=== PATIENT | female | born 1950 | race Caucasian/White ===

== ENCOUNTER 2016-12-14 17:44 | Inpatient (IN) | payer MEDICARE ==
[2016-12-14] VITALS (8 sets, daily range): BP systolic 122–156; BP diastolic 66–91
[~2016-12-14] VITALS: Ht 165.1 cm; Wt 99.6 kg
--- NOTE | ~2016-12-14 | CON ---
[place], [place] REPORT OF CONSULTATION NAME: JOANNE HASSAN UNIT #: [id number] ROOM: 524 DOCTOR: JHONNY BERRIOS MD BIRTHDATE: [birth year] DOS: 12/14/2016 REQUESTING PHYSICIAN: Jade Valero DO REASON FOR CONSULTATION: Recurrent SVT. ASSESSMENT: 1. 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 2. Similar complaints and presentation in October of this year and June of last year. 3. Tse-TE-kcplcomoy myocardial infarction was induced with fast heart rate. 4. Decreased functional capacity with ongoing chest pain, heaviness, tightness along with jaw pain with minimal activity despite normal stress test in June of last year. 5. Significant early family history of cardiomyopathy with her sister having heart transplant at age 57. 6. Diabetes. 7. Hypertension. 8. Hyperlipidemia. 9. Obesity with high probability of obstructive sleep apnea. 10. Ongoing wheezing with previous history of mold exposure. PLAN: 1. Cycle cardiac enzymes. 2. Check thyroid function test. 3. Decrease lisinopril in order to have leverage on blood pressure, to increase Toprol to 50 mg b.i.d. in a.m. 4. Keep the patient n.p.o. for possible transfer to [facility], if the patient agrees to transfer her care to us from [facility]. 5. Highly consider EP consultation for early ablation. 6. Sleep study. 7. Beta-yusuf will be titrated as much as vital signs allow. 8. Exercise, weight loss after above test has been done. 9. Please hold albuterol inhaler. 10. Consider Pulmonary consultation. 11. Early follow up with Dr. Land as an outpatient within 1-2 weeks. HISTORY AND PHYSICAL: The patient is a pleasant 66-year-old female well known to our group with Dr. Land. Apparently, the patient was seen and evaluated multiple times including myself for recurrent admission for SVT and heart rate almost of more than 190. The patient had 2 presentations where she was ruled in for myocardial infarction with significant and typical complain of jaw pain. The patient had similar episode while resting yesterday, this triggered also the same complaint of left jaw pain, so far though she has been negative for cardiac enzymes. She has been reporting over the past few months, worsening chest pain, heaviness, tightness with any minimal activity. The patient reported that she is not going shopping anymore because of that. Any over exertion will trigger left jaw pain. Never had any serious complaint at rest. The patient sleeps on [place], [place] REPORT OF CONSULTATION NAME: JOANNE HASSAN UNIT #: [id number] ROOM: 524 DOCTOR: JHONNY BERRIOS MD BIRTHDATE: [birth year] 1 pillow with no reported PND, orthopnea or pedal edema. In between episodes, the patient does feel occasional racing heartbeats. No fever, no chills, no night sweats, maintains good appetite, no weight loss. Current functional capacity appears to be [place] Heart Association class 2-3. PAST MEDICAL HISTORY: As detailed in my assessment. SOCIAL HISTORY: The patient denies ever any tobacco, alcohol or illicit drug abuse. FAMILY HISTORY: The patient's sister had cardiac transplant at age 57, two of her sisters had history of cardiomyopathy. CURRENT MEDICATIONS: On presentation, lisinopril, Toprol, aspirin, albuterol, DuoNeb, Protonix, Restoril, Zofran and [place] along with Tylenol. Currently, the patient is on antibiotic Rocephin and doxycycline along with Solu-Medrol. ALLERGIES: THE PATIENT IS ALLERGIC TO SULFA AND LEVAQUIN. REVIEW OF SYSTEMS: CONSTITUTIONAL: Currently, the patient denies any headache, diplopia or blurry vision. No fever, no chills, no night sweats. No abdominal pain, no bright blood per rectum, no tarry stools. The patient admits to joint pain and muscular pain. No anxiety, no depression. No polyuria, no polydipsia. No skin rash. Review of the other systems have been negative. PHYSICAL EXAMINATION: VITAL SIGNS: The patient is alert, oriented x 3, quite pleasant. Blood pressure 128/59, heart rate 86, respiratory rate of 20, temperature 97.7. HEENT: Extraocular muscles intact. Pupils equal, round and reactive to light. Conjunctivae: No pallor. Throat: No petechiae. NECK: Good upstroke. Unable to appreciate any bruit, no lymphadenopathy, no thyromegaly. HEART: S1, S2 with holosystolic murmur left upper sternal border, loud P2, physiologic split of 2nd heart sound. No rub. No retrosternal heave. CHEST AND BACK: No deformities. LUNGS: Significant decreased air movement, has generalized wheezing, no kt rales. ABDOMEN: Obese, soft, nontender, present bowel sounds, no masses, no bruits. LOWER EXTREMITIES: Mild edema bilateral with faint distal pulses. NEUROLOGIC: Grossly nonfocal. SKIN: No significant rash. LABORATORY DATA: White count initially 7.4, hemoglobin 14.5, platelets 222,000. Potassium 3.7, creatinine 1.36 initially, currently 0.9, hemoglobin A1c 7.2, elevated AST and ALT, negative CK-MB and troponin. Normal thyroid function test. [place], [place] REPORT OF CONSULTATION NAME: JOANNE HASSAN UNIT #: [id number] ROOM: 524 DOCTOR: JHONNY BERRIOS MD BIRTHDATE: [birth year] JHONNY BERRIOS MD CM:CONSTR:REPORT OF CONSULTATION 1113 12/16/16 0744 interface
--- NOTE | ~2016-12-14 | PR ---
[place], [place] PROGRESS NOTE NAME: JOANNE HASSAN [facility] #: [id number] UNIT #: [id number] ROOM: 524 DOCTOR: JAXSON FRIEND,RAUDELMEEK BIRTHDATE: [birth year] DOS: 12/16/2016 REASON FOR VISIT: Tachycardia. CLINICAL HISTORY: The patient was admitted for tachycardia. She has history of SVT, hypertension, diabetes. Currently, she is on IV Cardizem and beta blockers. She remained in sinus rhythm. Denies any chest pain or palpitations. No dizziness, no edema, no orthopnea, no PND. No fever or chills. RHYTHM STRIPS: The patient in sinus rhythm. PHYSICAL EXAMINATION: VITAL SIGNS: Blood pressure 112/58, pulse 90, respiratory rate 16. GENERAL: Alert, comfortable, in no acute distress. HEENT: Pupils round, equal. No jaundice. Tongue was moist, and pharynx was clear. NECK: Supple. No distended neck veins. No carotid bruit. CHEST: Nontender. LUNGS: Clear to auscultation bilaterally. ABDOMEN: Bowel sounds normal. HEART: Regular rhythm. No S3, no palpable thrill. EXTREMITIES: Showed no edema. Distal pulses palpable. SKIN: Warm and dry. No cyanosis, no clubbing. REVIEW OF DIAGNOSTIC TESTS: Her labs reviewed. Pertinent labs include hemoglobin 11.6, platelets 180,000. Creatinine 1.0, magnesium 1.7. IMPRESSION: 1. Paroxysmal supraventricular tachycardia with heart rates as high as 200 beats per minute. 2. Chest pain, myocardial infarction ruled out. 3. Diabetes type 2. 4. Hypertension. 5. Dyslipidemia. 6. Non-morbid obesity with body mass index 36.5. 7. Possible chronic obstructive pulmonary disease. 8. Family history of cardiomyopathy. 9. Decreased functional capacity. RECOMMENDATIONS: 1. We will wean off IV Cardizem. 2. We will increase her metoprolol to [address] Taveras recommended cardiac catheterization and then EP evaluation for her recurrent SVT. 4. She also will see Pulmonary for pulmonary evaluation as well as possible sleep study. 5. If the heart rate and blood pressure are stable, she will be transferred to [facility] today for cardiac catheterization, and then she will follow up with hotel maintenance technician either inpatient or as an outpatient based on the cardiac catheterization findings. [place], [place] PROGRESS NOTE NAME: JOANNE HASSAN UNIT #: [id number] ROOM: 524 DOCTOR: JAXSON FRIEND,CAITLIN BIRTHDATE: [birth year] 6. Risks and benefits of the cardiac catheterization were discussed with the patient and her family member who is at bedside, and all questions were answered. 7. Indication for a cardiac catheterization 19 with Appropriate Use Criteria of 7. 8. She would like to follow up with Dr. Land for her cardiac care in the future. 9. Further recommendations based on her cardiac catheterization findings and her symptoms. 10. Risk factor modification was discussed. 11. Continue to monitor heart rate and blood pressures. CAITLIN PURI MD CM:KRISTINA [id number] CAITLIN PURI MD 12/17/16 0336 interface
[~2016-12-14 17:44] MED LIST: ABILIFY5 MG PO; AMBIEN10 M1 PO; AMOXICILLIN500 MG PO; ASPIR-LOW81 MG PO; ASPIRIN ADULT L81 M2 PO; ATENOLOL25 MG PO; AZITHROMYCIN250 MG PO; B-COMPLEX1 CAP PO; B12,B-12,B 12500 MC1 PO; BACTRIM DS 8001 TA1 PO; CEPHALEXIN500 M1 PO; CIPRO500 MG PO; COLACE100 MG PO; CYMBALTA30 MG PO; CYMBALTA60 MG PO; LISINOPRIL10 MG PO; LISINOPRIL20 MG PO; LOPRESSOR50 MG PO; METFORMIN500 MG PO; METOPROLOL TART50 M1 PO; METOPROLOL50 MG PO; MOBIC15 MG PO; NAPROXEN250 MG PO; NEURONTIN300 MG PO; NUCYNTA75 MG PO; ONGLYZA5 MG PO; PRAVACHOL40 MG PO; PREDNISONE10 MG PO; TOPROL XL25 MG PO; VICODIN 5/500 505 MG PO; VITAMIN D2000 IU PO; VITAMIN D400 IU PO
[2016-12-14 18:27] LABS: BASO % 0.3 % (0.0-1.0); EOS # 0.2 10*3/uL (0.0-0.4); EOS % 3.2 % (1.0-4.0); HEMATOCRIT 45.1 % (37.0-47.0); HEMOGLOBIN 14.5 g/dl (12.0-16.0); LYMPH # 1.8 10*3/uL (1.3-4.4); LYMPH % 24.1 % (27.0-41.0); MEAN CORPUSCULAR HGB 30.2 pg (27.0-31.0); MEAN CORPUSCULAR HGB CONC 32.2 g/dl (33.0-37.0); MEAN PLATELET VOLUME 10.5 fl (9.6-12.3); MONO # 0.8 10*3/uL (0.1-1.0); MONO % 10.3 % (3.0-9.0); NEUT # 4.6 10*3/uL (2.3-7.9); NEUT % 61.7 % (47.0-73.0); PLATELET COUNT AUTOMATED 222 10*3/uL (130-400); RED CELL DISTRI WIDTH 13.1 % (0-14.5); WHITE BLOOD COUNT 7.4 10*3/uL (4.8-10.8)
[2016-12-14 18:39] LABS: PROTHROMBIN TIME 10.7 SECONDS (9.0-12.4)
[2016-12-14 18:43] LABS: ALBUMIN 4.1 gm/dl (3.1-4.5); ALKALINE PHOSPHATASE 55 U/L (45-117); BILIRUBIN, TOTAL 0.6 mg/dl (0.2-1.0); BUN 10 mg/dl (7-24); CARBON DIOXIDE 23 mmol/L (21-32); CHLORIDE 102 mmol/L (98-107); EST GLOM FILT AFRICAN AMERICAN 47 ml/min; GLUCOSE 195 mg/dL (65-99); MAGNESIUM 1.7 mg/dL (1.5-2.1); SGOT/AST 70 IU/L (3-35); SGPT/ALT 79 U/L (12-78); SODIUM 141 mmol/L (136-145); TOTAL PROTEIN 7.4 gm/dL (6.4-8.2)
[2016-12-14 18:45] LABS: TROPONIN I < 0.015 ng/ml (<0.045)
[2016-12-14] MEDS ORDERED: DILTIAZEM HCL120 M1 PO (19:05)
[2016-12-14] MEDS ORDERED: NEURONTIN300 MG PO (22:29)
[2016-12-14] MEDS ORDERED: TOPROL XL25 MG PO (22:30)
[2016-12-14] MEDS ORDERED: ULTRAM50 MG PO (22:31)
[2016-12-15] VITALS (8 sets, daily range): BP systolic 114–154; BP diastolic 54–84
[2016-12-15 00:36] LABS: CPK 78 U/L (26-192); TROPONIN I 0.019 ng/ml (<0.045)
[2016-12-15 00:37] LABS: CKMB < 0.5 ng/ml (0.5-3.6)
[2016-12-15 06:19] LABS: BASO % 0.5 % (0.0-1.0); EOS # 0.2 10*3/uL (0.0-0.4); EOS % 5.2 % (1.0-4.0); HEMOGLOBIN 12.6 g/dl (12.0-16.0); LYMPH # 1.4 10*3/uL (1.3-4.4); LYMPH % 33.3 % (27.0-41.0); MEAN CELL VOLUME 93.3 fl (81.0-99.0); MEAN CORPUSCULAR HGB 31.4 pg (27.0-31.0); MEAN CORPUSCULAR HGB CONC 33.7 g/dl (33.0-37.0); MEAN PLATELET VOLUME 10.7 fl (9.6-12.3); MONO # 0.6 10*3/uL (0.1-1.0); MONO % 13.6 % (3.0-9.0); NEUT % 46.9 % (47.0-73.0); PLATELET COUNT AUTOMATED 194 10*3/uL (130-400); RED BLOOD COUNT 4.01 10*6/uL (4.10-5.10); WHITE BLOOD COUNT 4.3 10*3/uL (4.8-10.8)
[2016-12-15 06:25] LABS: HEMATOCRIT 37.4 % (37.0-47.0)
[2016-12-15 06:31] LABS: CKMB 0.6 ng/ml (0.5-3.6); TROPONIN I 0.018 ng/ml (<0.045)
[2016-12-15 06:49] LABS: HEMOGLOBIN A1c 7.2 % (4.8-5.6)
[2016-12-15 06:52] LABS: ALBUMIN 3.4 gm/dl (3.1-4.5); ALKALINE PHOSPHATASE 46 U/L (45-117); BILIRUBIN, TOTAL 0.4 mg/dl (0.2-1.0); BUN 9 mg/dl (7-24); CARBON DIOXIDE 27 mmol/L (21-32); CHLORIDE 106 mmol/L (98-107); CHOLESTEROL 185 mg/dL (<200); EST GLOM FILT AFRICAN AMERICAN > 60 ml/min; FREE T4 1.01 ng/dl (0.76-1.46); GLUCOSE 137 mg/dL (65-99); HDL CHOLESTEROL 44 mg/dl (40-60); LDL CHOLESTEROL 97 mg/dL (9-159); MAGNESIUM 1.7 mg/dL (1.5-2.1); PHOSPHOROUS 2.9 mg/dL (2.5-4.9); POTASSIUM 3.7 mmol/L (3.5-5.1); PROTHROMBIN TIME 10.6 SECONDS (9.0-12.4); SGOT/AST 56 IU/L (3-35); SGPT/ALT 64 U/L (12-78); SODIUM 142 mmol/L (136-145); TOTAL PROTEIN 6.3 gm/dL (6.4-8.2); TRIGLYCERIDES 221 mg/dl (<150); VLDL CHOLESTEROL 44 mg/dL (6-40)
[2016-12-15 08:32] LABS: FOLIC ACID 17.51 ng/mL (>5.38); VITAMIN D, 25-HYDROXY 35.8 ng/mL (30-100)
[2016-12-15] MEDS ORDERED: PRESERVISION A1 EACH PO (09:09)
[2016-12-15 12:01] LABS: CPK 55 U/L (26-192)
[2016-12-15 12:02] LABS: CKMB < 0.5 ng/ml (0.5-3.6); TROPONIN I < 0.015 ng/ml (<0.045)
[2016-12-16] VITALS (9 sets, daily range): BP systolic 107–156; BP diastolic 51–88
[2016-12-16 06:04] LABS: BASO % 0.2 % (0.0-1.0); HEMATOCRIT 35.8 % (37.0-47.0); HEMOGLOBIN 11.6 g/dl (12.0-16.0); IG # 0.1 10*3/uL (0.0-0.1); LYMPH # 0.8 10*3/uL (1.3-4.4); LYMPH % 12.2 % (27.0-41.0); MEAN CELL VOLUME 92.5 fl (81.0-99.0); MEAN CORPUSCULAR HGB CONC 32.4 g/dl (33.0-37.0); MEAN PLATELET VOLUME 10.4 fl (9.6-12.3); MONO # 0.1 10*3/uL (0.1-1.0); MONO % 1.9 % (3.0-9.0); NEUT # 5.4 10*3/uL (2.3-7.9); NEUT % 84.8 % (47.0-73.0); PLATELET COUNT AUTOMATED 180 10*3/uL (130-400); RED BLOOD COUNT 3.87 10*6/uL (4.10-5.10); RED CELL DISTRI WIDTH 12.7 % (0-14.5); WHITE BLOOD COUNT 6.4 10*3/uL (4.8-10.8)
[2016-12-16 06:36] LABS: BUN 13 mg/dl (7-24); CARBON DIOXIDE 24 mmol/L (21-32); CHLORIDE 103 mmol/L (98-107); EST GLOM FILT AFRICAN AMERICAN > 60 ml/min; GLUCOSE 321 mg/dL (65-99); SODIUM 138 mmol/L (136-145)
[2016-12-16 06:37] LABS: POTASSIUM 4.7 mmol/L (3.5-5.1)
[2016-12-16] MEDS ORDERED: PREDNISONE50 MG PO (14:08)
[2016-12-16] MEDS ORDERED: TOPROL XL50 M1 PO (14:08)
[2016-12-16] MEDS ORDERED: DOXYCYCLINE100 MG PO (14:08)
[2016-12-16] MEDS ORDERED: LISINOPRIL10 M1 PO (14:08)
[2016-12-17] VITALS: BP 140/82
== END 2016-12-17 05:55 | disposition short-term general hospital (02) | DRG 682 ==
LOC: ED 17:44 → 5E 18:55 → EDHOLD 18:55 → 5E 19:36
PROVIDERS: Family Medicine; Hospitalist; Nurse Practitioner Family
DX: N17.0 Acute kidney failure with tubular necrosis (principal); J96.01 Acute respiratory failure with hypoxia; I47.1 Supraventricular tachycardia; I25.10 Atherosclerotic heart disease of native coronary artery without angina pectoris; J20.9 Acute bronchitis, unspecified; E11.9 Type 2 diabetes mellitus without complications; E78.5 Hyperlipidemia, unspecified; E66.9 Obesity, unspecified; J44.9 Chronic obstructive pulmonary disease, unspecified; I10 Essential (primary) hypertension; F41.1 Generalized anxiety disorder; F32.9 Major depressive disorder, single episode, unspecified; Z90.49 Acquired absence of other specified parts of digestive tract; Z90.710 Acquired absence of both cervix and uterus; Z80.1 Family history of malignant neoplasm of trachea, bronchus and lung; Z88.1 Allergy status to other antibiotic agents; Z88.2 Allergy status to sulfonamides; Z79.82 Long term (current) use of aspirin; Z79.84 Long term (current) use of oral hypoglycemic drugs; Z79.899 Other long term (current) drug therapy; Z82.49 Family history of ischemic heart disease and other diseases of the circulatory system; Z68.34 Body mass index [BMI] 34.0-34.9, adult

== ENCOUNTER → 2017-02-07 | Outpatient (CLI) | payer MEDICARE ==
[~2017-02-07] MED LIST changes: +DILTIAZEM HCL120 M1 PO; +DOXYCYCLINE100 MG PO; +LISINOPRIL10 M1 PO; +PREDNISONE50 MG PO; +PRESERVISION A1 EACH PO; +TOPROL XL50 M1 PO; +ULTRAM50 MG PO
== END | disposition home or self-care (01) ==
LOC: CARD 09:42
DX: I47.1 Supraventricular tachycardia (principal)

== ENCOUNTER → 2017-03-13 | Outpatient (CLI) | payer MEDICARE | END | disposition home or self-care (01) | LOC: CARD 10:37 | DX: I47.1 Supraventricular tachycardia (principal); R06.02 Shortness of breath ==

== ENCOUNTER → 2017-06-16 | Outpatient (CLI) | payer MEDICARE ==
--- NOTE | ~2017-06-16 | HM ---
[place], [place] HOLTER MONITOR REPORT NAME: JOANNE HASSAN UNIT #: [id number] ROOM: DOCTOR: ANDRÉS MENDOZA MD BIRTHDATE: [birth year] DOS: 06/18/2017 A 24-HOUR HOLTER MONITOR. REFERRING PHYSICIAN: Dr. Land INDICATION: SVT. The patient underwent standard protocol 24-hour Holter monitoring. 1. Baseline rhythm was sinus tachycardia with average heart rate of 100 beats per minute with a minimum heart rate of 75 beats per minute, maximum heart rate of 158 beats per minute. 2. Supraventricular activity: The patient had a total of 9 supraventricular beats with the majority of these being isolated PACs with 3 beats and a triplet of PAT. No other atrial arrhythmias were noted. 3. Ventricular activity: The patient had a total of 105 isolated PVCs out of 143,000 beats.. 4. No significant blocks, pauses or bradycardia. 5. Diary was reviewed, which showed 1 entry which stated shortness of breath with walking upstairs at 3:57 p.m. No arrhythmias to correlate with this were noted. SUMMARY OF FINDINGS: Unremarkable 24-hour Holter monitoring ANDRÉS MENDOZA MD CM:HOLTER:HOLTER MONITOR REPORT [id number] ANDRÉS MENDOZA MD
== END | disposition home or self-care (01) ==
LOC: CARD 06-02 09:30
DX: I47.1 Supraventricular tachycardia (principal)

== ENCOUNTER → 2017-07-02 | Outpatient (CLI) | payer MEDICARE ==
--- NOTE | ~2017-07-02 | HM ---
[place], [place] HOLTER MONITOR REPORT NAME: [id number] UNIT #: [id number] ROOM: DOCTOR: NIMESH KELLY MD BIRTHDATE: [birth year] DOS: A 24-HOUR HOLTER MONITOR The study was recorded on July 02, analyzed on July 03, interpreted and dictated on 07/03/2017. INDICATIONS: Possible SVT and tachycardia. PROCEDURE: The patient was monitored for 24 hours utilizing a Holter device. FINDINGS: Basic rhythm is normal sinus with an average heart rate of 89. Heart rate in sinus rhythm varied from 71 to 143 beats per minute. Rare premature ventricular contractions were recorded. No ventricular tachycardia was seen. Rare premature atrial contractions were recorded. There was no SVT seen. The patient's diary did indicate several episodes of chest pain and back pain as well as right chest pain. In each instants she was in sinus rhythm with heart rates between 79 and 90. No arrhythmias correlated with her symptoms, IMPRESSION: Normal 24-hour Holter monitor. NIMESH KELLY MD CM:HOLTER:HOLTER MONITOR REPORT [id number] NIMESH KELLY MD
== END | disposition home or self-care (01) ==
LOC: CARD 03:08
DX: I47.1 Supraventricular tachycardia (principal)

== ENCOUNTER 2017-09-26 19:35 | Inpatient (IN) | payer MEDICARE ==
[~2017-09-26] VITALS: Ht 165.1 cm; Wt 93.1 kg
--- NOTE | ~2017-09-26 | CON ---
[place], [place] REPORT OF CONSULTATION [id number] UNIT #: [id number] ROOM: 410 DOCTOR: NIMESH KELLY MD BIRTHDATE: [birth year] DOS: 09/27/2017 CHIEF COMPLAINT: Tachycardia. HISTORY OF PRESENT ILLNESS: The patient is a 67-year-old woman who does have a history of supraventricular tachycardia and essential hypertension. She presented to the hospital initially in June 2016 with chest pain and a narrow complex tachycardia at a rate of about 190. This broke with adenosine. She was treated with beta blockers, but returned to the hospital with more chest pain in November 2016. Once again, she was in a narrow complex tachycardia. She was transferred to [facility] where Dr. Coles did an electrophysiologic study with induction of AV adeel reentrant tachycardia. She did undergo ablation. This occurred 01/13/2017. Since then, her heart rate has not been as fast, but she has felt fatigued. We have adjusted her medications, but she continues to have significant fatigue. On 09/26/2017, she was alert and oriented at 5:00 p.m., but later she seemed confused. Family went to her home and found her unresponsive, sitting in a chair. Sugar was 261. She was given Narcan in the Emergency Room and became completely awake after that. However, a drug screen did not show any evidence for narcotics. She was admitted to the hospital for further assessment. Since she has been here, her CBC has been normal. Sodium is 143, potassium 4.2, sugar 219, BUN 9 and creatinine 1.05. Lactic acid level was elevated at 3.6, but fell to 2.2 and normalized after that. TSH was normal at 0.89. Troponins were normal. Since she has been in the hospital, she states that she has felt better, but she still gets breathless with minimal exertion. According to her daughter, this is a chronic problem. In addition, when she is ambulatory, her heart rate goes up dramatically. We were therefore asked to assist in her assessment. PAST MEDICAL HISTORY: Includes 1. Essential hypertension. 2. Type 2 diabetes mellitus. 3. Status post hysterectomy, tonsillectomy, appendectomy and back surgery. 4. The patient reports catheterization in the distant past, prior to the onset of her tachycardia. The patient states that the study was done at the [facility] in [place] and that everything was normal. She has not had any further catheterization since then. 5. Hospitalization on 09/23/2013 with narrow complex tachycardia at rate of 190. The patient's symptoms resolved with intravenous adenosine. 6. Multiple episodes of palpitations, lightheadedness and fatigue occurring several times a week without provocation. 7. Hospitalization on 06/01/2016 with regular narrow complex tachycardia, rate 190. 8. Mild elevation of troponin associated with tachycardia. 9. Hospitalization on 01/18/2017 with narrow complex tachycardia. The patient transferred to [facility] where Dr. Stephan Coles did an electrophysiologic study and ablation on 01/13/2017. REVIEW OF SYSTEMS: The patient denies diplopia or loss of vision. She had a syncopal episode prior to admission. She denies focal weakness. She denies [place], [place] REPORT OF CONSULTATION NAME: JOANNE HASSAN UNIT #: [id number] ROOM: 410 DOCTOR: NIMESH KELLY MD BIRTHDATE: [birth year] nausea or vomiting. She denies fevers, chills, sweats or recent weight change. She denies orthopnea or PND. She denies hemoptysis or hematemesis. She denies cough, fevers or chills. She does admit to easy fatigue, dyspnea with exertion and exertional tachycardia. She denies change in bowel or bladder habits and denies any blood in her stools or urine. She denies any skin rash. She denies any peripheral edema. She denies heat or cold intolerance. The remainder of the review of systems is negative except as noted above. MEDICATIONS PRIOR TO ADMISSION: Aspirin 81 mg per day, Cymbalta 60 mg b.i.d., gabapentin 300 mg tablets 3 tablets b.i.d., lisinopril 10 mg daily, metformin 500 mg 2 tablets b.i.d., pravastatin 40 mg at bedtime, Onglyza 5 mg daily, tramadol 50 mg p.r.n. (rarely taking), vitamin D 1 tablet daily and vitamin D 2000 units daily. ALLERGIES: The patient lists allergies to SULFA DRUGS and LEVOFLOXACIN. FAMILY HISTORY: Multiple family members have had a history of cardiomyopathy including three sisters and her mother. One sister had a heart transplant. The patient is unaware of the actual diagnosis, aside from the fact that it is a cardiomyopathy. SOCIAL HISTORY: The patient does not smoke or consume significant amounts of alcohol. She does live with smokers, but has never herself smoked. PHYSICAL EXAMINATION: GENERAL: The patient is a well-nourished white female who is awake, alert and oriented. VITAL SIGNS: Pulse is 90 and regular, blood pressure is 142/66. She is afebrile. She weighs 93.1 kg and has a body mass index of 34.2. HEENT: Normocephalic and atraumatic. Extraocular muscles are intact. Sclerae are clear. Pupils equal, round and react to light. The oral mucosa is moist. Tongue is midline. NECK: Supple. She has no jugular distention. Carotids are full. She has no bruit. She has no neck or supraclavicular masses. No thyromegaly. LUNGS: Respirations are unlabored. Her chest is clear to auscultation and percussion. She has no presacral edema or chest wall tenderness. HEART: Has a regular rhythm. She has a soft S4 gallop, but no S3 or murmur. The PMI is not displaced. There is no precordial heave, lift or thrill. ABDOMEN: Soft and normally active without masses, organomegaly or bruits. EXTREMITIES: Showed no edema. Peripheral pulses are palpable bilaterally. LABORATORY DATA: I reviewed her electrocardiogram. It showed sinus rhythm at a rate of [address] changes. CBC shows hemoglobin of 11.6 and a white count of 6100, platelet count is 161,000. TSH is normal. Toxicology shows no drugs of abuse. IMPRESSION: 1. Sinus tachycardia, etiology not yet determined. This may represent an inappropriate sinus tachycardia. [place], [place] REPORT OF CONSULTATION NAME: JOANNE HASSAN UNIT #: [id number] ROOM: 410 DOCTOR: NIMESH KELLY MD BIRTHDATE: [birth year] 2. Syncope on admission, etiology not clear. The patient did have an elevated lactate level on admission indicating poor tissue perfusion and probable prolonged hypotension. 3. Essential hypertension. 4. Type 2 diabetes, on oral medications. 5. 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 PLAN: We will reintroduce metoprolol to her regimen. I thought that it had caused fatigue, but she did not feel any better when we stopped the drug. It probably will be better at controlling her rates than any other agent we have. We will obtain an echocardiogram to ensure that her LV function has not deteriorated since she had her ablation. Further recommendations depend upon her response to therapy and her echocardiographic findings. I thank the hospitalist physicians for asking our advice regarding her care. NIMESH KELLY MD CM:CONSTR:REPORT OF CONSULTATION 1528 09/29/17 1553 interface
--- NOTE | ~2017-09-26 | PR ---
[place], [place] PROGRESS NOTE NAME: [id number] UNIT #: [id number] ROOM: 410 DOCTOR: NIMESH KELLY MD BIRTHDATE: [birth year] DOS: 09/28/2017 SUBJECTIVE: The patient was seen at her bedside today, 09/28/2017, for followup of SVT and tachycardia. She is a 67-year-old woman who has a history of AV adeel reentrant tachycardia and essential hypertension. She did undergo ablation at the [facility] by Dr. Coles on 01/13/2017. Since then her heart has not been as fast, but she has still felt fatigued. We have adjusted her medicines, but she continues to have symptoms. On 09/26/2017, she was alert and oriented at 5:00 p.m., but later was confused. When the family went to check on her, they found her unresponsive, sitting in her chair. Her sugar was 261. She was given Narcan with subsequent improvement in her sensorium, but a drug screen did not show any evidence for narcotics. Initially in the hospital, her pulse was 90 to 120. I placed her on metoprolol again and her heart rate now is in the 80s. She states that her only complaint today is that she has a headache, which she believes is from wide swings in her sugar. I had had her on metoprolol in the past, but stopped it because of concerns that it was causing fatigue. It seems to work; however, better to prevent her tachycardia than diltiazem. She did not feel any better when we stopped metoprolol in any case. PHYSICAL EXAMINATION: GENERAL: She is well-nourished white female who is awake, alert and oriented. VITAL SIGNS: Pulse is 80 and regular, blood pressure is 150/79. She is afebrile. She weighs 93.1 kilograms with a body mass index of 34.2. HEENT: Normocephalic and atraumatic. Extraocular muscles are intact. Sclerae are clear. NECK: Supple. She has no jugular distention. Carotids are full without bruits. LUNGS: Respirations are unlabored. Her chest is clear to auscultation and percussion. She had no presacral edema. HEART: Had a regular rhythm. She had a fourth heart sound, but no third heart sound or murmur. The PMI was not displaced. ABDOMEN: Benign. EXTREMITIES: Showed no edema. IMPRESSION: 1. Sinus tachycardia, possibly inappropriate sinus tachycardia. She seems to be doing better with metoprolol therapy. 2. Syncope prior to admission, etiology not yet apparent. She did have an elevated lactate level on admission, indicating poor tissue perfusion. 3. Essential hypertension. 4. Type 2 diabetes mellitus, on oral medications. 5. 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 PLAN: We will continue to treat her with metoprolol for rate control. She will have an echocardiogram in the next 24 hours to make sure that her LV function [place], [place] PROGRESS NOTE NAME: [facility]ASS[facility] [id number] UNIT #: [id number] ROOM: 410 DOCTOR: NIMESH KELLY MD BIRTHDATE: [birth year] has not deteriorated since her ablation. Further recommendations will depend upon her response to therapy and echocardiographic findings. I thank the hospitalist physicians for asking our advice regarding her care. NIMESH KELLY MD CM:KRISTINA [id number] NIMESH KELLY MD 09/28/172216 interface
[2017-09-26 19:35] VITALS: BP 116/70
[2017-09-26 20:09] LABS: BILIRUBIN NEGATIVE (NEGATIVE); BLOOD NEGATIVE (NEGATIVE); CLARITY SL CLOUDY (CLEAR); COLOR YELLOW (YELLOW); GLUCOSE 2+ (NEGATIVE); KETONE TRACE (NEGATIVE); LEUKO ESTERASE NEGATIVE (NEGATIVE); NITRITE POSITIVE (NEGATIVE); PH 5.5 (5.0-9.0); UROBILINOGEN 0.2 E.U./dl (0.2-1.0)
[2017-09-26 20:15] LABS: RBC 0-2 rbc/hpf (0-2)
[2017-09-26 20:16] LABS: BACTERIA 4+
[2017-09-26 20:17] LABS: URINE AMPHETAMINES < 1000 (1000ng/ml); URINE BARBITURATES < 200 (200ng/ml); URINE BENZODIAZEPINES < 200 (200ng/ml); URINE CANNABINOIDS (THC) < 50 (50ng/ml); URINE COCAINE < 300 (300ng/ml); URINE METHADONE < 300 (300ng/ml); URINE OPIATES < 300 (300ng/ml)
[2017-09-26 20:18] LABS: URINE PHENCYCLIDINE < 25 (25ng/ml)
[2017-09-26 20:20] VITALS: BP 110/70
[2017-09-26 20:32] LABS: ACT PARTIAL THROMBO TIME 26.6 SECONDS (20.8-31.5)
[2017-09-26 20:43] LABS: BASO % 0.4 % (0.0-1.0); EOS # 0.2 10*3/uL (0.0-0.4); HEMATOCRIT 36.7 % (37.0-47.0); HEMOGLOBIN 12.3 g/dl (12.0-16.0); LYMPH # 1.5 10*3/uL (1.3-4.4); LYMPH % 19.9 % (27.0-41.0); MEAN CELL VOLUME 91.1 fl (81.0-99.0); MEAN CORPUSCULAR HGB 30.5 pg (27.0-31.0); MEAN CORPUSCULAR HGB CONC 33.5 g/dl (33.0-37.0); MEAN PLATELET VOLUME 11.6 fl (9.6-12.3); MONO # 0.5 10*3/uL (0.1-1.0); MONO % 6.9 % (3.0-9.0); NEUT # 5.2 10*3/uL (2.3-7.9); NEUT % 70.4 % (47.0-73.0); PLATELET COUNT AUTOMATED 161 10*3/uL (130-400); RED BLOOD COUNT 4.03 10*6/uL (4.10-5.10); RED CELL DISTRI WIDTH 12.7 % (0-14.5); WHITE BLOOD COUNT 7.4 10*3/uL (4.8-10.8)
[2017-09-26 21:00] VITALS: BP 110/68
[2017-09-26 21:02] LABS: ALBUMIN 3.2 gm/dl (3.1-4.5); ALKALINE PHOSPHATASE 89 U/L (45-117); BUN 12 mg/dl (7-24); CHLORIDE 102 mmol/L (98-107); CREATININE 1.23 mg/dL (0.55-1.02); LIPASE 630 U/L (73-393); POTASSIUM 4.4 mmol/L (3.5-5.1); SGOT/AST 76 IU/L (3-35); SGPT/ALT 77 U/L (12-78); SODIUM 138 mmol/L (136-145); TOTAL PROTEIN 6.5 gm/dL (6.4-8.2)
[2017-09-26 21:09] LABS: ETHYL ALCOHOL < 3.0 mg/dl (<3); TROPONIN I < 0.015 ng/ml (<0.045)
[2017-09-26 21:56] VITALS: BP 106/70
[2017-09-26 22:40] VITALS: BP 126/55
[2017-09-27 08:00] VITALS: BP 116/70
[2017-09-27 08:05] LABS: BASO % 0.3 % (0.0-1.0); EOS # 0.2 10*3/uL (0.0-0.4); EOS % 3.5 % (1.0-4.0); HEMATOCRIT 35.6 % (37.0-47.0); HEMOGLOBIN 11.6 g/dl (12.0-16.0); LYMPH # 1.7 10*3/uL (1.3-4.4); LYMPH % 27.2 % (27.0-41.0); MEAN CORPUSCULAR HGB CONC 32.6 g/dl (33.0-37.0); MEAN PLATELET VOLUME 11.8 fl (9.6-12.3); MONO # 0.5 10*3/uL (0.1-1.0); MONO % 8.2 % (3.0-9.0); NEUT # 3.7 10*3/uL (2.3-7.9); NEUT % 60.5 % (47.0-73.0); PLATELET COUNT AUTOMATED 161 10*3/uL (130-400); RED BLOOD COUNT 3.87 10*6/uL (4.10-5.10); RED CELL DISTRI WIDTH 13.1 % (0-14.5); WHITE BLOOD COUNT 6.1 10*3/uL (4.8-10.8)
[2017-09-27 08:31] LABS: ALBUMIN 3.2 gm/dl (3.1-4.5); ALKALINE PHOSPHATASE 87 U/L (45-117); BUN 9 mg/dl (7-24); CHLORIDE 107 mmol/L (98-107); CHOLESTEROL 149 mg/dL (<200); CREATININE 1.05 mg/dL (0.55-1.02); HDL CHOLESTEROL 38 mg/dl (40-60); LDL CHOLESTEROL 73 mg/dL (9-159); PHOSPHOROUS 2.7 mg/dL (2.5-4.9); POTASSIUM 4.2 mmol/L (3.5-5.1); SGOT/AST 70 IU/L (3-35); SGPT/ALT 74 U/L (12-78); SODIUM 143 mmol/L (136-145); TOTAL PROTEIN 6.5 gm/dL (6.4-8.2); TRIGLYCERIDES 188 mg/dl (<150); VLDL CHOLESTEROL 38 mg/dL (6-40)
[2017-09-27 08:36] LABS: THYROID STIM HORMONE (HS) 0.893 uIU/ml (0.358-4.75)
[2017-09-27 10:05] LABS: VITAMIN D, 25-HYDROXY 69.2 ng/mL (30-100)
[2017-09-27 12:00] VITALS: BP 142/66
[2017-09-27 16:56] VITALS: BP 139/80
[2017-09-27 20:41] VITALS: BP 144/78
[2017-09-28] VITALS: BP 147/77
[2017-09-28 06:06] LABS: BASO % 0.4 % (0.0-1.0); EOS # 0.3 10*3/uL (0.0-0.4); EOS % 5.1 % (1.0-4.0); HEMATOCRIT 37.9 % (37.0-47.0); HEMOGLOBIN 12.6 g/dl (12.0-16.0); MEAN CELL VOLUME 91.3 fl (81.0-99.0); MEAN CORPUSCULAR HGB 30.4 pg (27.0-31.0); MEAN CORPUSCULAR HGB CONC 33.2 g/dl (33.0-37.0); MEAN PLATELET VOLUME 11.5 fl (9.6-12.3); MONO # 0.5 10*3/uL (0.1-1.0); MONO % 8.5 % (3.0-9.0); NEUT # 2.8 10*3/uL (2.3-7.9); NEUT % 49.1 % (47.0-73.0); PLATELET COUNT AUTOMATED 185 10*3/uL (130-400); RED BLOOD COUNT 4.15 10*6/uL (4.10-5.10); RED CELL DISTRI WIDTH 12.8 % (0-14.5); WHITE BLOOD COUNT 5.7 10*3/uL (4.8-10.8)
[2017-09-28 06:37] LABS: ALBUMIN 3.5 gm/dl (3.1-4.5); ALKALINE PHOSPHATASE 109 U/L (45-117); BUN 7 mg/dl (7-24); CHLORIDE 106 mmol/L (98-107); CREATININE 0.97 mg/dL (0.55-1.02); SGOT/AST 137 IU/L (3-35); SGPT/ALT 107 U/L (12-78); SODIUM 141 mmol/L (136-145); TOTAL PROTEIN 7.1 gm/dL (6.4-8.2)
[2017-09-28 08:00] VITALS: BP 156/86
[2017-09-28 12:00] VITALS: BP 141/73
[2017-09-28 16:00] VITALS: BP 150/79
[2017-09-28 20:00] VITALS: BP 149/89
[2017-09-29] VITALS: BP 159/93
[2017-09-29 06:37] LABS: BUN 8 mg/dl (7-24); CHLORIDE 106 mmol/L (98-107); CREATININE 0.86 mg/dL (0.55-1.02); POTASSIUM 3.7 mmol/L (3.5-5.1); SODIUM 140 mmol/L (136-145)
[2017-09-29 06:46] LABS: BASO % 0.2 % (0.0-1.0); EOS # 0.2 10*3/uL (0.0-0.4); HEMATOCRIT 36.7 % (37.0-47.0); HEMOGLOBIN 12.1 g/dl (12.0-16.0); LYMPH # 1.7 10*3/uL (1.3-4.4); LYMPH % 32.9 % (27.0-41.0); MEAN CELL VOLUME 91.1 fl (81.0-99.0); MEAN PLATELET VOLUME 11.5 fl (9.6-12.3); MONO # 0.5 10*3/uL (0.1-1.0); MONO % 9.1 % (3.0-9.0); NEUT # 2.8 10*3/uL (2.3-7.9); NEUT % 53.2 % (47.0-73.0); PLATELET COUNT AUTOMATED 181 10*3/uL (130-400); RED BLOOD COUNT 4.03 10*6/uL (4.10-5.10); WHITE BLOOD COUNT 5.2 10*3/uL (4.8-10.8)
[2017-09-29 08:00] VITALS: BP 152/80
[2017-09-29 12:00] VITALS: BP 157/85
[2017-09-29] MEDS ORDERED: TOPROL XL50 M1 PO (15:02)
[2017-09-29] MEDS ORDERED: AMINOPHYLLIN200 MG PO (15:02)
[2017-09-29 16:00] VITALS: BP 132/72
== END 2017-09-29 17:05 | disposition home or self-care (01) | DRG 682 ==
LOC: ED 19:35 → 4E 21:41 → EDHOLD 21:41 → ICCU 21:58 → 4E 22:16
PROVIDERS: Emergency Medicine Emergency Medical Services; Hospitalist; Internal Medicine
DX: N17.0 Acute kidney failure with tubular necrosis (principal); G92 Toxic encephalopathy; E87.2 Acidosis; I47.1 Supraventricular tachycardia; E11.65 Type 2 diabetes mellitus with hyperglycemia; N39.0 Urinary tract infection, site not specified; R74.0 Nonspecific elevation of levels of transaminase and lactic acid dehydrogenase [LDH]; K59.00 Constipation, unspecified; R74.8 Abnormal levels of other serum enzymes; I25.10 Atherosclerotic heart disease of native coronary artery without angina pectoris; F32.9 Major depressive disorder, single episode, unspecified; F41.1 Generalized anxiety disorder; I10 Essential (primary) hypertension; D64.9 Anemia, unspecified; E66.9 Obesity, unspecified; Z68.34 Body mass index [BMI] 34.0-34.9, adult; Z79.82 Long term (current) use of aspirin; Z79.84 Long term (current) use of oral hypoglycemic drugs; Z79.899 Other long term (current) drug therapy; Z87.442 Personal history of urinary calculi; Z90.49 Acquired absence of other specified parts of digestive tract; Z90.710 Acquired absence of both cervix and uterus; Z88.1 Allergy status to other antibiotic agents; Z88.2 Allergy status to sulfonamides; Z80.1 Family history of malignant neoplasm of trachea, bronchus and lung; Z82.49 Family history of ischemic heart disease and other diseases of the circulatory system; Z83.3 Family history of diabetes mellitus

== ENCOUNTER 2018-06-11 18:29 | Emergency (ER) | payer MEDICARE ==
[~2018-06-11] VITALS: Ht 162.5 cm; Wt 90.7 kg
[~2018-06-11 18:29] MED LIST changes: +AMINOPHYLLIN200 MG PO
[2018-06-11 18:31] VITALS: BP 158/69
== END 2018-06-11 20:47 | disposition home or self-care (01) ==
LOC: ED 18:29
DX: S20.212A Contusion of left front wall of thorax, initial encounter (principal); S00.83XA Contusion of other part of head, initial encounter; M54.5 Low back pain; E11.9 Type 2 diabetes mellitus without complications; E66.9 Obesity, unspecified; I10 Essential (primary) hypertension; I25.10 Atherosclerotic heart disease of native coronary artery without angina pectoris; I25.2 Old myocardial infarction; Z87.442 Personal history of urinary calculi; Z90.710 Acquired absence of both cervix and uterus; Z88.2 Allergy status to sulfonamides; Z88.1 Allergy status to other antibiotic agents; Z79.2 Long term (current) use of antibiotics; Z79.899 Other long term (current) drug therapy; Z79.82 Long term (current) use of aspirin; Z90.49 Acquired absence of other specified parts of digestive tract; W06.XXXA Fall from bed, initial encounter; Y93.89 Activity, other specified; Y92.098 Other place in other non-institutional residence as the place of occurrence of the external cause; Y99.8 Other external cause status

== ENCOUNTER 2018-06-18 14:05 | Inpatient (IN) | payer MEDICARE ==
[~2018-06-18] VITALS: Ht 162.5 cm; Wt 88.1 kg
--- NOTE | ~2018-06-18 | EKG ---
[place], [place] ELECTROCARDIOGRAM REPORT NAME: JOANNE HASSAN UNIT #: [id number] ROOM: 408 DOCTOR: LEONARDO DRAFT REPORT BIRTHDATE: [birth year] [facility] Test Date: 2018-06-18 Test Time: 16:37:48 Pat Name: JOANNE HASSAN Department: Room: 408 Gender: F Chemist Internship: [employer] : 1950 Requested By: FREEMAN HODGES PA-C Order Number: [id number] Reading MD: Adrian Dumont MD Measurements Intervals Randall Rate: 92 P: 39 ID: [id number] QRS: 67 QRSD: 93 T: 49 QT: 406 QTc: 503 Interpretive Statements Sinus rhythm Borderline short ID interval Borderline T abnormalities, anterior leads Prolonged QT interval Electronically Signed On 06-22-2018 13:54:20 PDT by Adrian Dumont MD CM:EKGRPT:ELECTROCARDIOGRAM REPORT [id number] FREEMAN HODGES PA-C EPIPHANY DRAFT REPORT FREEMAN HODGES PA-C
[2018-06-18 14:07] VITALS: BP 146/62
[2018-06-18 16:41] LABS: BASO % 0.2 % (0.0-1.0); EOS # 0.5 10*3/uL (0.0-0.4); EOS % 5.5 % (1.0-4.0); HEMATOCRIT 39.6 % (37.0-47.0); HEMOGLOBIN 13.1 g/dl (12.0-16.0); LYMPH # 1.8 10*3/uL (1.3-4.4); LYMPH % 20.7 % (27.0-41.0); MEAN CELL VOLUME 92.1 fl (81.0-99.0); MEAN CORPUSCULAR HGB 30.5 pg (27.0-31.0); MEAN CORPUSCULAR HGB CONC 33.1 g/dl (33.0-37.0); MEAN PLATELET VOLUME 10.6 fl (9.6-12.3); MONO # 0.7 10*3/uL (0.1-1.0); MONO % 7.6 % (3.0-9.0); NEUT # 5.8 10*3/uL (2.3-7.9); NEUT % 65.7 % (47.0-73.0); PLATELET COUNT AUTOMATED 182 10*3/uL (130-400); RED CELL DISTRI WIDTH 13.1 % (0-14.5); WHITE BLOOD COUNT 8.8 10*3/uL (4.8-10.8)
[2018-06-18 16:57] LABS: ALBUMIN 3.7 gm/dl (3.1-4.5); ALKALINE PHOSPHATASE 108 U/L (45-117); BUN 8 mg/dl (7-24); CHLORIDE 101 mmol/L (98-107); CREATININE 0.99 mg/dL (0.55-1.02); POTASSIUM 4.1 mmol/L (3.5-5.1); SGOT/AST 47 IU/L (3-35); SGPT/ALT 46 U/L (12-78); SODIUM 137 mmol/L (136-145); TOTAL PROTEIN 7.1 gm/dL (6.4-8.2)
[2018-06-18 16:58] LABS: TROPONIN I < 0.015 ng/ml (<0.045)
[2018-06-18] MEDS ORDERED: XANAX1 MG PO (17:20)
[2018-06-18] MEDS ORDERED: METOPROLOL TART50 M1 PO (17:24)
[2018-06-18 20:00] VITALS: BP 123/66
[2018-06-19] VITALS: BP 132/66
[2018-06-19 05:40] LABS: BILIRUBIN NEGATIVE (NEGATIVE); BLOOD NEGATIVE (NEGATIVE); CLARITY SL CLOUDY (CLEAR); COLOR YELLOW (YELLOW); GLUCOSE NEGATIVE (NEGATIVE); KETONE NEGATIVE (NEGATIVE); LEUKO ESTERASE TRACE (NEGATIVE); NITRITE NEGATIVE (NEGATIVE); UROBILINOGEN 0.2 E.U./dl (0.2-1.0)
[2018-06-19 05:45] LABS: BACTERIA 3+; EPITHELIAL CELLS 15-20
[2018-06-19 05:55] LABS: ALBUMIN 3.5 gm/dl (3.1-4.5); ALKALINE PHOSPHATASE 105 U/L (45-117); BUN 9 mg/dl (7-24); CHLORIDE 106 mmol/L (98-107); CHOLESTEROL 153 mg/dL (<200); HDL CHOLESTEROL 46 mg/dl (40-60); LDL CHOLESTEROL 87 mg/dL (9-159); PHOSPHOROUS 3.1 mg/dL (2.5-4.9); POTASSIUM 4.3 mmol/L (3.5-5.1); SGOT/AST 39 IU/L (3-35); SGPT/ALT 45 U/L (12-78); SODIUM 139 mmol/L (136-145); TOTAL PROTEIN 7.5 gm/dL (6.4-8.2); TRIGLYCERIDES 101 mg/dl (<150); VLDL CHOLESTEROL 20 mg/dL (6-40)
[2018-06-19 06:13] LABS: BASO % 0.1 % (0.0-1.0); EOS % 0.1 % (1.0-4.0); HEMATOCRIT 38.8 % (37.0-47.0); HEMOGLOBIN 12.9 g/dl (12.0-16.0); LYMPH # 1.1 10*3/uL (1.3-4.4); LYMPH % 13.3 % (27.0-41.0); MEAN CELL VOLUME 92.2 fl (81.0-99.0); MEAN CORPUSCULAR HGB 30.6 pg (27.0-31.0); MEAN CORPUSCULAR HGB CONC 33.2 g/dl (33.0-37.0); MEAN PLATELET VOLUME 11.2 fl (9.6-12.3); MONO # 0.2 10*3/uL (0.1-1.0); MONO % 2.6 % (3.0-9.0); NEUT # 6.8 10*3/uL (2.3-7.9); NEUT % 83.3 % (47.0-73.0); PLATELET COUNT AUTOMATED 185 10*3/uL (130-400); RED BLOOD COUNT 4.21 10*6/uL (4.10-5.10); WHITE BLOOD COUNT 8.2 10*3/uL (4.8-10.8)
[2018-06-19 07:32] LABS: VITAMIN D, 25-HYDROXY 75.5 ng/mL (30-100)
[2018-06-19 08:00] VITALS: BP 134/70
[2018-06-19 12:00] VITALS: BP 130/62
[2018-06-19 16:00] VITALS: BP 116/55
[2018-06-19 20:00] VITALS: BP 141/67
[2018-06-20] VITALS: BP 133/79
[2018-06-20 08:00] VITALS: BP 137/72
[2018-06-20 12:00] VITALS: BP 139/70
[2018-06-20 16:00] VITALS: BP 150/80
[2018-06-20 20:00] VITALS: BP 110/90
[2018-06-21] VITALS: BP 109/55
[2018-06-21 08:00] VITALS: BP 168/88
[2018-06-21 12:00] VITALS: BP 141/77
[2018-06-21 16:00] VITALS: BP 127/68
[2018-06-21 20:00] VITALS: BP 119/61
[2018-06-22] VITALS: BP 146/79
[2018-06-22 07:12] LABS: BASO % 0.4 % (0.0-1.0); EOS # 0.4 10*3/uL (0.0-0.4); EOS % 4.8 % (1.0-4.0); HEMATOCRIT 41.4 % (37.0-47.0); HEMOGLOBIN 13.3 g/dl (12.0-16.0); LYMPH # 2.5 10*3/uL (1.3-4.4); LYMPH % 33.5 % (27.0-41.0); MEAN CELL VOLUME 92.6 fl (81.0-99.0); MEAN CORPUSCULAR HGB 29.8 pg (27.0-31.0); MEAN CORPUSCULAR HGB CONC 32.1 g/dl (33.0-37.0); MONO # 0.7 10*3/uL (0.1-1.0); MONO % 8.7 % (3.0-9.0); NEUT # 3.9 10*3/uL (2.3-7.9); NEUT % 52.3 % (47.0-73.0); PLATELET COUNT AUTOMATED 211 10*3/uL (130-400); RED BLOOD COUNT 4.47 10*6/uL (4.10-5.10); WHITE BLOOD COUNT 7.4 10*3/uL (4.8-10.8)
[2018-06-22 07:33] LABS: CREATININE 0.92 mg/dL (0.55-1.02)
[2018-06-22 08:00] VITALS: BP 153/89
[2018-06-22 12:00] VITALS: BP 94/74
[2018-06-22 13:20] VITALS: BP 100/58
[2018-06-22] MEDS ORDERED: TYLENOL325 M3 PO (14:18)
[2018-06-22] MEDS ORDERED: DOXYCYCLINE100 M3 PO (14:20)
[2018-06-22] MEDS ORDERED: XANAX1 MG PO (17:30)
== END 2018-06-22 16:02 | disposition other institution (70) | DRG 552 ==
LOC: ED 14:05 → EDHOLD 16:15 → 4E 16:15
PROVIDERS: Internal Medicine; Physician Assistant
DX: M54.16 Radiculopathy, lumbar region (principal); M46.26 Osteomyelitis of vertebra, lumbar region; M46.27 Osteomyelitis of vertebra, lumbosacral region; I25.2 Old myocardial infarction; E13.8 Other specified diabetes mellitus with unspecified complications; F32.9 Major depressive disorder, single episode, unspecified; I25.10 Atherosclerotic heart disease of native coronary artery without angina pectoris; I10 Essential (primary) hypertension; F41.1 Generalized anxiety disorder; E66.9 Obesity, unspecified; R29.6 Repeated falls; G89.29 Other chronic pain; M47.896 Other spondylosis, lumbar region; M47.897 Other spondylosis, lumbosacral region; E13.69 Other specified diabetes mellitus with other specified complication; Z88.2 Allergy status to sulfonamides; Z88.8 Allergy status to other drugs, medicaments and biological substances; Z79.899 Other long term (current) drug therapy; Z79.82 Long term (current) use of aspirin; Z90.49 Acquired absence of other specified parts of digestive tract; Z90.710 Acquired absence of both cervix and uterus; S20.212D Contusion of left front wall of thorax, subsequent encounter; Z90.89 Acquired absence of other organs; Z87.442 Personal history of urinary calculi; Z82.49 Family history of ischemic heart disease and other diseases of the circulatory system; Z83.3 Family history of diabetes mellitus; Z80.1 Family history of malignant neoplasm of trachea, bronchus and lung; Z80.8 Family history of malignant neoplasm of other organs or systems; Z68.33 Body mass index [BMI] 33.0-33.9, adult

== ENCOUNTER → 2019-04-15 | Outpatient (CLI) | payer MEDICARE ==
[~2019-04-15] MED LIST changes: +DOXYCYCLINE100 M3 PO; +TYLENOL325 M3 PO; +XANAX1 MG PO
== END | disposition home or self-care (01) ==
LOC: LAB 14:20
DX: M47.816 Spondylosis without myelopathy or radiculopathy, lumbar region (principal); G60.9 Hereditary and idiopathic neuropathy, unspecified

== ENCOUNTER → 2019-07-15 | Outpatient (CLI) | payer MEDICARE ==
[2019-07-15 14:17] LABS: ALBUMIN 4.3 gm/dl (3.1-4.5); CREATININE 1.44 mg/dL (0.55-1.02); POTASSIUM 4.5 mmol/L (3.5-5.1); TOTAL PROTEIN 8.1 gm/dL (6.4-8.2)
== END | disposition home or self-care (01) ==
LOC: LAB 13:24
PROVIDERS: Orthopaedic Surgery
DX: Z79.01 Long term (current) use of anticoagulants (principal)

== ENCOUNTER → 2019-09-03 | Outpatient (CLI) | payer MEDICARE ==
[2019-09-04 08:10] LABS: HEP B CORE AB TOTAL 006718 Negative (Negative); HEPATITIS B SURFACE AB 006395 Reactive (.)
== END | disposition home or self-care (01) ==
LOC: LAB 13:01
DX: K76.0 Fatty (change of) liver, not elsewhere classified (principal); R19.4 Change in bowel habit; Z79.899 Other long term (current) drug therapy

== ENCOUNTER 2019-10-06 17:09 | Inpatient (IN) | payer MEDICARE ==
[~2019-10-06] VITALS: Ht 160 cm; Wt 84.9 kg
[2019-10-06 17:17] VITALS: BP 146/88
[2019-10-06 18:40] LABS: BASO % 0.7 % (0.0-1.0); EOS # 0.2 10*3/uL (0.0-0.4); EOS % 2.6 % (1.0-4.0); HEMATOCRIT 43.2 % (37.0-47.0); HEMOGLOBIN 13.7 g/dl (12.0-16.0); LYMPH # 2.1 10*3/uL (1.3-4.4); LYMPH % 35.4 % (27.0-41.0); MEAN CELL VOLUME 96.2 fl (81.0-99.0); MEAN CORPUSCULAR HGB 30.5 pg (27.0-31.0); MEAN CORPUSCULAR HGB CONC 31.7 g/dl (33.0-37.0); MEAN PLATELET VOLUME 11.1 fl (9.6-12.3); MONO # 0.5 10*3/uL (0.1-1.0); MONO % 9.3 % (3.0-9.0); NEUT % 51.7 % (47.0-73.0); PLATELET COUNT AUTOMATED 185 10*3/uL (130-400); RED BLOOD COUNT 4.49 10*6/uL (4.10-5.10); RED CELL DISTRI WIDTH 12.3 % (0-14.5); WHITE BLOOD COUNT 5.8 10*3/uL (4.8-10.8)
[2019-10-06 18:54] LABS: ACT PARTIAL THROMBO TIME 26.6 SECONDS (20.0-32.1)
[2019-10-06 18:57] LABS: ALBUMIN 3.7 gm/dl (3.1-4.5); ALKALINE PHOSPHATASE 94 U/L (45-117); BUN 12 mg/dl (7-24); CHLORIDE 104 mmol/L (98-107); CREATININE 1.18 mg/dL (0.55-1.02); LIPASE 480 U/L (73-393); POTASSIUM 4.5 mmol/L (3.5-5.1); SGOT/AST 31 IU/L (3-35); SGPT/ALT 59 U/L (12-78); SODIUM 135 mmol/L (136-145); TOTAL PROTEIN 7.2 gm/dL (6.4-8.2)
[2019-10-06 19:01] LABS: TROPONIN I < 0.015 ng/ml (<0.045)
[2019-10-06 20:00] VITALS: BP 159/80
[2019-10-06 21:11] LABS: CLARITY SL CLOUDY (CLEAR); COLOR YELLOW (YELLOW)
[2019-10-06 21:12] LABS: BILIRUBIN NEGATIVE (NEGATIVE); BLOOD NEGATIVE (NEGATIVE); GLUCOSE 3+ (NEGATIVE); KETONE NEGATIVE (NEGATIVE); LEUKO ESTERASE NEGATIVE (NEGATIVE); NITRITE NEGATIVE (NEGATIVE); PH 6.5 (5.0-9.0); UROBILINOGEN 0.2 E.U./dl (0.2-1.0)
[2019-10-06 21:13] LABS: BACTERIA 3+; EPITHELIAL CELLS 0-2
[2019-10-06 22:11] VITALS: BP 156/80
[2019-10-06 22:25] VITALS: BP 159/80
--- NOTE | 2019-10-06 22:25 | NUR ---
A 69, admitted to , under the services of LANEY Moreau DO with a diagnosis of UTI, HYPERGLYCEMIA, WEAKNESS. Chief complaint is BLOOD SUGAR PROBLEMS, WEAKNESS. Patient arrived via ambulatory from [place]. Monitor applied. Initial assessment completed. Vital signs taken and recorded. LANEY MOREAU DO notified of admission to the unit. Orders received. See assessment for past medical history, medications and allergies. Patient and/or family oriented to unit. visitation policy reviewed. Clothing/patient valuable form completed. YOUSIF YOUNG
[2019-10-06] MEDS ORDERED: ULTRAM50 MG PO (22:34)
[2019-10-06] MEDS ORDERED: GLUCOTROL10 MG PO (22:36)
[2019-10-06] MEDS ORDERED: LANTUS SOL100 UNIT/1 SC (22:37)
--- NOTE | 2019-10-06 22:55 | NUR ---
DR. CHU NOTIFIED PATIENT'S HOME MED REQ IS UP TO DATE.
--- NOTE | 2019-10-06 23:39 | NUR ---
PATIENT MEDICATED WITH TYLENOL FOR COMPLAINTS OF A HEADACHE. WILL CONTINUE TO MONITOR. CALL LIGHT IN REACH.
--- NOTE | 2019-10-07 04:05 | NUR ---
PATIENT MEDICATED WITH TYLENOL FOR CONTINUED COMPLAINTS OF A HEADACHE. PREVIOUS DOSE OF TYLENOL INEFFECTIVE. WILL CONTINUE TO MONITOR.
--- NOTE | 2019-10-07 07:00 | NUR ---
Arrived on shift, introduced to patient, no needs voiced at this time, white board updated. bed in low position, wheel locks in place, call light within reach.
[2019-10-07 08:00] VITALS: BP 149/63
--- NOTE | 2019-10-07 08:23 | NUR ---
Shift chart check completed.
[2019-10-07 08:27] LABS: BASO % 0.4 % (0.0-1.0); EOS # 0.2 10*3/uL (0.0-0.4); EOS % 3.6 % (1.0-4.0); HEMATOCRIT 41.2 % (37.0-47.0); HEMOGLOBIN 12.8 g/dl (12.0-16.0); LYMPH # 2.3 10*3/uL (1.3-4.4); LYMPH % 41.1 % (27.0-41.0); MEAN CELL VOLUME 97.9 fl (81.0-99.0); MEAN CORPUSCULAR HGB 30.4 pg (27.0-31.0); MEAN CORPUSCULAR HGB CONC 31.1 g/dl (33.0-37.0); MEAN PLATELET VOLUME 11.4 fl (9.6-12.3); MONO # 0.4 10*3/uL (0.1-1.0); MONO % 7.3 % (3.0-9.0); NEUT # 2.7 10*3/uL (2.3-7.9); NEUT % 47.4 % (47.0-73.0); PLATELET COUNT AUTOMATED 170 10*3/uL (130-400); RED BLOOD COUNT 4.21 10*6/uL (4.10-5.10); RED CELL DISTRI WIDTH 12.5 % (0-14.5); WHITE BLOOD COUNT 5.6 10*3/uL (4.8-10.8)
[2019-10-07 08:46] LABS: BUN 11 mg/dl (7-24); CHLORIDE 109 mmol/L (98-107); CHOLESTEROL 192 mg/dL (<200); CREATININE 1.05 mg/dL (0.55-1.02); POTASSIUM 3.7 mmol/L (3.5-5.1); SODIUM 142 mmol/L (136-145); TRIGLYCERIDES 210 mg/dl (<150); VLDL CHOLESTEROL 42 mg/dL (6-40)
[2019-10-07 08:54] LABS: FREE T4 0.86 ng/dl (0.76-1.46); HDL CHOLESTEROL 42 mg/dl (40-60); LDL CHOLESTEROL 108 mg/dL (9-159)
--- NOTE | 2019-10-07 09:46 | NUR ---
Nutritional Support Services Note: Instructed pt on 1800 julia diet. Diet copy given to pt per request. Pt stated that she was compliant with diet, but has been non-compliant lately. She has been eating out a lot more, skipping breakfast. Pt has a fair understanding of diet. Can verbalize what foods to avoid/choose. Encourage pt to call with any questions. Will follow if needed. Mayelin Smith, Kanwal mba intern
[2019-10-07 09:56] LABS: VITAMIN D, 25-HYDROXY 52.1 ng/mL (30-100)
--- NOTE | 2019-10-07 10:44 | NUR ---
SPEECH PATHOLOGY Clinical swallowing evaluation completed due to dysphagia. Patient was admitted after experiencing weakness, fatigue and slurred speech and was diagnosed with hyperglycemia. Medical history includes CAD, DM, depression, NSTEMI, anxiety. Patient is ordered a regular diet and thin liquid. Upon assessment she was alert and weak. She reported that she had an episode at home where her sugar elevated and she had a hard time swallowing. She stated that since she has been in the hospital, she is feeling better and having no trouble swallowing. Oral musculature exam was completed and WNL. She was assessed with thin liquid and coarse solid. She tolerated items with no oral or swallowing difficulty. Recommend she remain on present diet. No follow up treatment is warranted at this time. Results and roderick. were shared with patient who verbalized understanding. Refer to report in [facility] for further information. Thank you for this referral. SAE HURD MSCCC-GROUND EQUIPMENT MECHANIC
--- NOTE | 2019-10-07 13:11 | NUR ---
Seismology Technical Officer in to talk to patient. Patient states lives at HOME with SON. There are FEW steps in the home. Physician: TASNEEM Pharmacy: [facility] Home health services: NONE Patient's level of ADLs: INDEPENDENT Patient has working utilities: YES DME: [facility] Follow-up physician's appointment after d/c: WILL BE MADE BY HOSPITALIST NURSE DIRECTOR ON DISCHARGE Does patient want to access PORTAL?: NO Discharge plan PT LIVES AT HOME WITH HER SON AND IS INDEPENDENT IN HER CARE. DENIES THAT SHE WILL HAVE ANY NEEDS ON DISCHARGE. RECEIVED A ORDER FOR HOME HEALTH FOR PT. WILL RETALK TO PT. STATES SHE HAS A RIDE ON DISCHARGE. WILL CONTINUE TO FOLLOW.. HUMZA ISMS
--- NOTE | 2019-10-07 14:04 | NUR ---
REVISITED PT TO TALK TO HER ABOUT HOME HEALTH, SHE WAS RELUCTANT AT FIRST BUT DID FINALLY AGREE TO IT. WHEN GIVEN CHOICES CHOSE [facility]. WILL SEND REFERRAL.
--- NOTE | 2019-10-07 14:05 | NUR ---
Discharge instructions reviewed with patient/family. Patient receptive and verbalizes understanding. Follow-up care arranged. Written instructions given to patient/family.IV REMOVED, DECLINED W/C FOR DISCHARGE. RHIANNA JULES
--- NOTE | 2019-10-07 16:09 | NUR ---
Nursing screen and occupational therapy referral received. Thank you. Imelda Clayton OTR/L
--- NOTE | 2019-10-08 08:32 | NUR ---
REFERRAL FAXED TO [facility].
== END 2019-10-07 14:05 | disposition home or self-care (01) | DRG 638 ==
LOC: ED 17:09 → EDHOLD 21:48 → 5E 21:57
PROVIDERS: Emergency Medicine; Internal Medicine; ADMIT Internal Medicine
DX: E11.65 Type 2 diabetes mellitus with hyperglycemia (principal); N39.0 Urinary tract infection, site not specified; E87.1 Hypo-osmolality and hyponatremia; I47.2 Ventricular tachycardia; I25.10 Atherosclerotic heart disease of native coronary artery without angina pectoris; E11.22 Type 2 diabetes mellitus with diabetic chronic kidney disease; N18.3 Chronic kidney disease, stage 3 (moderate); F32.9 Major depressive disorder, single episode, unspecified; I12.9 Hypertensive chronic kidney disease with stage 1 through stage 4 chronic kidney disease, or unspecified chronic kidney disease; R31.9 Hematuria, unspecified; R13.10 Dysphagia, unspecified; M54.16 Radiculopathy, lumbar region; E66.9 Obesity, unspecified; F41.1 Generalized anxiety disorder; J98.6 Disorders of diaphragm; E55.9 Vitamin D deficiency, unspecified; R74.8 Abnormal levels of other serum enzymes; R79.89 Other specified abnormal findings of blood chemistry; Z68.33 Body mass index [BMI] 33.0-33.9, adult; I25.2 Old myocardial infarction; Z90.710 Acquired absence of both cervix and uterus; Z82.49 Family history of ischemic heart disease and other diseases of the circulatory system; Z83.3 Family history of diabetes mellitus; Z88.1 Allergy status to other antibiotic agents; Z88.8 Allergy status to other drugs, medicaments and biological substances; Z79.82 Long term (current) use of aspirin; Z79.899 Other long term (current) drug therapy

== ENCOUNTER → 2019-10-20 | Outpatient (CLI) | payer MEDICARE ==
[~2019-10-20] MED LIST changes: +GLUCOTROL10 MG PO; +LANTUS SOL100 UNIT/1 SC
[2019-10-20 16:21] LABS: IRON 93 ug/dL (50-170); TOTAL IRON BINDING CAPACITY 336 ug/dl (250-450)
[2019-10-21 06:08] LABS: AFP TUMOR MARKER 002253 2.6 ng/mL (0.0-8.3)
[2019-10-21 07:10] LABS: ALPHA-1-ANTITRYPSIN, SERUM 129 mg/dL (101-187); HEPATITIS B SURFACE AG Negative (Negative); HEPATITIS C VIRUS ANTIBODY 0.1 s/co (0.0-0.9); IMMUNOGLOBULIN G, QNT 891 mg/dL (700-1600); IMMUNOGLOBULIN M, QNT 87 mg/dL (26-217)
[2019-10-21 13:08] LABS: ANTI-SMOOTH MUSCLE ANTIBODY 7 Units (0-19)
== END | disposition home or self-care (01) ==
LOC: LAB 15:34
PROVIDERS: Physician Assistant
DX: K76.0 Fatty (change of) liver, not elsewhere classified (principal); E78.2 Mixed hyperlipidemia; R10.9 Unspecified abdominal pain

== ENCOUNTER → 2020-03-14 | Outpatient (CLI) | payer MEDICARE ==
[2020-03-14 15:56] LABS: ALBUMIN 3.7 gm/dl (3.1-4.5); CREATININE 1.21 mg/dL (0.55-1.02); POTASSIUM 4.5 mmol/L (3.5-5.1); TOTAL PROTEIN 7.4 gm/dL (6.4-8.2)
== END | disposition home or self-care (01) ==
LOC: LAB 15:21
PROVIDERS: Orthopaedic Surgery
DX: Z79.899 Other long term (current) drug therapy (principal)

== ENCOUNTER 2020-08-29 17:37 | Emergency (ER) | payer MEDICARE ==
[~2020-08-29] VITALS: Ht 162.5 cm; Wt 102.1 kg
[2020-08-29 18:57] LABS: BASO % 0.5 % (0.0-1.0); EOS # 0.2 10*3/uL (0.0-0.4); EOS % 2.9 % (1.0-4.0); HEMATOCRIT 42.2 % (37.0-47.0); LYMPH # 1.7 10*3/uL (1.3-4.4); LYMPH % 25.4 % (27.0-41.0); MEAN CELL VOLUME 96.3 fl (81.0-99.0); MEAN CORPUSCULAR HGB 30.8 pg (27.0-31.0); MEAN PLATELET VOLUME 10.4 fl (9.6-12.3); MONO # 0.6 10*3/uL (0.1-1.0); MONO % 8.3 % (3.0-9.0); NEUT # 4.1 10*3/uL (2.3-7.9); NEUT % 62.4 % (47.0-73.0); PLATELET COUNT AUTOMATED 170 10*3/uL (130-400); RED BLOOD COUNT 4.38 10*6/uL (4.10-5.10); RED CELL DISTRI WIDTH 13.1 % (0-14.5); WHITE BLOOD COUNT 6.6 10*3/uL (4.8-10.8)
[2020-08-29 19:09] LABS: ACT PARTIAL THROMBO TIME 26.5 SECONDS (20.0-32.1)
[2020-08-29 19:14] LABS: ALBUMIN 3.3 gm/dl (3.1-4.5); ALKALINE PHOSPHATASE 88 U/L (45-117); BUN 16 mg/dl (7-24); CHLORIDE 107 mmol/L (98-107); CREATININE 1.22 mg/dL (0.55-1.02); LIPASE 385 U/L (73-393); POTASSIUM 4.3 mmol/L (3.5-5.1); SGOT/AST 56 IU/L (3-35); SGPT/ALT 63 U/L (12-78); SODIUM 139 mmol/L (136-145); TOTAL PROTEIN 6.6 gm/dL (6.4-8.2); TROPONIN I < 0.015 ng/ml (<0.045)
[2020-08-29 19:30] LABS: BILIRUBIN Negative (Negative); BLOOD Negative (Negative); CLARITY Clear (Clear); COLOR Yellow (Yellow); GLUCOSE Negative (Negative); KETONE Negative (Negative); LEUKO ESTERASE Negative (Negative); NITRITE Negative (Negative); SPECIFIC GRAVITY 1.015 (1.001-1.030); UROBILINOGEN 0.2 E.U./dl (0.0-1.0)
[2020-08-29 19:31] LABS: BACTERIA TRACE; EPITHELIAL CELLS 0-2; URIC ACID CRYSTALS TR
[2020-08-29 20:34] VITALS: BP 144/84
== END 2020-08-29 21:42 | disposition home or self-care (01) ==
LOC: ED 17:37
PROVIDERS: Emergency Medicine
DX: R42 Dizziness and giddiness (principal); R25.1 Tremor, unspecified; Z88.2 Allergy status to sulfonamides; Z88.1 Allergy status to other antibiotic agents; Z88.8 Allergy status to other drugs, medicaments and biological substances; Z79.899 Other long term (current) drug therapy; Z79.82 Long term (current) use of aspirin; Z87.442 Personal history of urinary calculi; Z98.890 Other specified postprocedural states; Z90.49 Acquired absence of other specified parts of digestive tract; Z90.711 Acquired absence of uterus with remaining cervical stump; Z90.89 Acquired absence of other organs; Z98.61 Coronary angioplasty status

== ENCOUNTER 2020-09-08 14:26 | Inpatient (IN) | payer MEDICARE ==
[~2020-09-08] VITALS: Ht 162.5 cm; Wt 103.0 kg
[2020-09-08 14:32] VITALS: BP 114/63
[2020-09-08 15:30] LABS: BASO % 0.2 % (0.0-1.0); EOS % 0.2 % (1.0-4.0); LYMPH # 1.1 10*3/uL (1.3-4.4); LYMPH % 17.5 % (27.0-41.0); MEAN CORPUSCULAR HGB 30.8 pg (27.0-31.0); MEAN CORPUSCULAR HGB CONC 32.4 g/dl (33.0-37.0); MEAN PLATELET VOLUME 10.4 fl (9.6-12.3); MONO # 0.8 10*3/uL (0.1-1.0); MONO % 11.8 % (3.0-9.0); NEUT # 4.6 10*3/uL (2.3-7.9); NEUT % 69.8 % (47.0-73.0); PLATELET COUNT AUTOMATED 145 10*3/uL (130-400); RED BLOOD COUNT 4.42 10*6/uL (4.10-5.10); RED CELL DISTRI WIDTH 13.5 % (0-14.5); WHITE BLOOD COUNT 6.5 10*3/uL (4.8-10.8)
[2020-09-08 15:56] LABS: ALBUMIN 3.1 gm/dl (3.1-4.5); CREATININE 1.32 mg/dL (0.55-1.02); POTASSIUM 4.8 mmol/L (3.5-5.1)
[2020-09-08 16:32] LABS: ABG BASE EXCESS -1.6 mmol/L (-2.0-2.0); ARTERIAL BLOOD GAS PH 7.466 (7.35-7.45)
[2020-09-08 16:46] VITALS: BP 112/91
[2020-09-08 19:20] VITALS: BP 101/63
[2020-09-08] MEDS ORDERED: PRAVASTATIN SOD40 MG PO (19:57)
[2020-09-08] MEDS ORDERED: GLIMEPIRIDE2 MG PO (19:58)
[2020-09-08] MEDS ORDERED: DICLOFENAC SOD50 MG PO (19:59)
[2020-09-08] MEDS ORDERED: LORAZEPAM1 MG PO (19:59)
[2020-09-08] MEDS ORDERED: OXYBUTYNIN CHLOR5 M1 PO (20:00)
[2020-09-08] MEDS ORDERED: INSULIN LI100 UNIT/2 SC ×2 (20:01→20:02)
[2020-09-08 22:41] VITALS: BP 138/76
[2020-09-09] VITALS (9 sets, daily range): BP systolic 110–142; BP diastolic 50–81
[2020-09-09 05:44] LABS: ALBUMIN 3.1 gm/dl (3.1-4.5); CREATININE 1.28 mg/dL (0.55-1.02); POTASSIUM 4.9 mmol/L (3.5-5.1); TOTAL PROTEIN 7.1 gm/dL (6.4-8.2)
[2020-09-09 06:09] LABS: BASO % 0.2 % (0.0-1.0); HEMATOCRIT 43.2 % (37.0-47.0); LYMPH # 0.9 10*3/uL (1.3-4.4); LYMPH % 13.7 % (27.0-41.0); MEAN CELL VOLUME 94.5 fl (81.0-99.0); MEAN CORPUSCULAR HGB 30.6 pg (27.0-31.0); MEAN CORPUSCULAR HGB CONC 32.4 g/dl (33.0-37.0); MEAN PLATELET VOLUME 10.9 fl (9.6-12.3); MONO # 0.3 10*3/uL (0.1-1.0); MONO % 5.3 % (3.0-9.0); NEUT % 80.3 % (47.0-73.0); PLATELET COUNT AUTOMATED 144 10*3/uL (130-400); RED BLOOD COUNT 4.57 10*6/uL (4.10-5.10); RED CELL DISTRI WIDTH 13.2 % (0-14.5); WHITE BLOOD COUNT 6.2 10*3/uL (4.8-10.8)
[2020-09-09 07:44] LABS: ABG BASE EXCESS -3.7 mmol/L (-2.0-2.0); ARTERIAL BLOOD GAS PH 7.397 (7.35-7.45)
[2020-09-10] VITALS: BP 114/59
[2020-09-10 06:32] LABS: BASO % 0.1 % (0.0-1.0); HEMATOCRIT 37.7 % (37.0-47.0); LYMPH # 1.5 10*3/uL (1.3-4.4); LYMPH % 12.8 % (27.0-41.0); MEAN CELL VOLUME 95.7 fl (81.0-99.0); MEAN CORPUSCULAR HGB 31.2 pg (27.0-31.0); MEAN CORPUSCULAR HGB CONC 32.6 g/dl (33.0-37.0); MEAN PLATELET VOLUME 11.1 fl (9.6-12.3); MONO % 8.9 % (3.0-9.0); NEUT % 77.4 % (47.0-73.0); PLATELET COUNT AUTOMATED 173 10*3/uL (130-400); RED BLOOD COUNT 3.94 10*6/uL (4.10-5.10); RED CELL DISTRI WIDTH 13.2 % (0-14.5); WHITE BLOOD COUNT 11.6 10*3/uL (4.8-10.8)
[2020-09-10 06:51] LABS: ALBUMIN 2.8 gm/dl (3.1-4.5); CREATININE 1.55 mg/dL (0.55-1.02); POTASSIUM 4.6 mmol/L (3.5-5.1)
[2020-09-10 06:54] LABS: TOTAL PROTEIN 6.4 gm/dL (6.4-8.2)
[2020-09-10 08:00] VITALS: BP 117/84
[2020-09-10 08:40] LABS: ABG BASE EXCESS -1.8 mmol/L (-2.0-2.0); ARTERIAL BLOOD GAS PH 7.424 (7.35-7.45)
[2020-09-10 12:00] VITALS: BP 146/86
[2020-09-10 16:00] VITALS: BP 131/81
[2020-09-10 20:00] VITALS: BP 155/78
[2020-09-11] VITALS: BP 143/69
[2020-09-11 06:02] LABS: ALBUMIN 2.8 gm/dl (3.1-4.5); CREATININE 1.18 mg/dL (0.55-1.02); POTASSIUM 4.4 mmol/L (3.5-5.1); TOTAL PROTEIN 6.5 gm/dL (6.4-8.2)
[2020-09-11 06:55] LABS: BASO % 0.3 % (0.0-1.0); HEMATOCRIT 39.7 % (37.0-47.0); LYMPH # 1.5 10*3/uL (1.3-4.4); LYMPH % 16.3 % (27.0-41.0); MEAN CELL VOLUME 93.9 fl (81.0-99.0); MEAN CORPUSCULAR HGB 30.7 pg (27.0-31.0); MEAN CORPUSCULAR HGB CONC 32.7 g/dl (33.0-37.0); MEAN PLATELET VOLUME 10.6 fl (9.6-12.3); MONO % 10.5 % (3.0-9.0); NEUT # 6.7 10*3/uL (2.3-7.9); PLATELET COUNT AUTOMATED 189 10*3/uL (130-400); RED BLOOD COUNT 4.23 10*6/uL (4.10-5.10); WHITE BLOOD COUNT 9.3 10*3/uL (4.8-10.8)
[2020-09-11 08:00] VITALS: BP 137/61
[2020-09-11 12:00] VITALS: BP 131/73
[2020-09-11 16:00] VITALS: BP 133/71
[2020-09-11 19:07] LABS: BILIRUBIN Negative (Negative); BLOOD Negative (Negative); CLARITY Clear (Clear); COLOR Yellow (Yellow); GLUCOSE 3+ (Negative); KETONE Negative (Negative); LEUKO ESTERASE Negative (Negative); NITRITE Negative (Negative); SPECIFIC GRAVITY 1.015 (1.001-1.030); UROBILINOGEN 0.2 E.U./dl (0.0-1.0)
[2020-09-11 19:18] LABS: BACTERIA 1+; EPITHELIAL CELLS 0-2; WBC 0-2 wbc/hpf (0-5)
[2020-09-11 20:00] VITALS: BP 151/77
[2020-09-11 23:30] VITALS: BP 150/95
[2020-09-12 06:00] LABS: HEMATOCRIT 39.2 % (37.0-47.0); MEAN CELL VOLUME 92.5 fl (81.0-99.0); MEAN CORPUSCULAR HGB CONC 32.4 g/dl (33.0-37.0); MEAN PLATELET VOLUME 10.8 fl (9.6-12.3); PLATELET COUNT AUTOMATED 216 10*3/uL (130-400); RED BLOOD COUNT 4.24 10*6/uL (4.10-5.10); RED CELL DISTRI WIDTH 12.9 % (0-14.5); WHITE BLOOD COUNT 10.6 10*3/uL (4.8-10.8)
[2020-09-12 06:15] LABS: ALBUMIN 2.7 gm/dl (3.1-4.5); CREATININE 1.18 mg/dL (0.55-1.02); POTASSIUM 4.1 mmol/L (3.5-5.1); TOTAL PROTEIN 6.2 gm/dL (6.4-8.2)
[2020-09-12 06:50] LABS: ATYPICAL LYMPHS 3 % (0-0); PLATELET SUFFICIENCY NORMAL (NORMAL); TOTAL CELLS COUNTED 100 #CELLS
[2020-09-12 08:00] VITALS: BP 137/66
[2020-09-12 12:00] VITALS: BP 124/75
[2020-09-12 14:39] VITALS: BP 70/44
[2020-09-12 16:00] VITALS: BP 155/70
[2020-09-12] MEDS ORDERED: DECADRON6 M1 PO (16:25)
== END 2020-09-12 18:10 | disposition home or self-care (01) | DRG 871 ==
LOC: ED 14:26 → EDHOLD 17:31 → 4E 17:31 → EDHOLD 17:35 → 4E 09-09 13:37
PROVIDERS: Internal Medicine; Internal Medicine Critical Care Medicine; Nurse Practitioner Family; Student in an Organized Health Care Education/Training Program; ADMIT Emergency Medicine; ATTEND Emergency Medicine
PROC: XW033E5 Introduction of Remdesivir Anti-infective into Peripheral Vein, Percutaneous Approach, New Technology Group 5 (ICD-10-PCS; principal; 2020-09-08)
DX: A41.9 Sepsis, unspecified organism (principal); U07.1 COVID-19; J12.82 Pneumonia due to coronavirus disease 2019; J96.21 Acute and chronic respiratory failure with hypoxia; N17.0 Acute kidney failure with tubular necrosis; E44.0 Moderate protein-calorie malnutrition; E87.1 Hypo-osmolality and hyponatremia; F33.1 Major depressive disorder, recurrent, moderate; D68.59 Other primary thrombophilia; Z68.37 Body mass index [BMI] 37.0-37.9, adult; I25.10 Atherosclerotic heart disease of native coronary artery without angina pectoris; E11.22 Type 2 diabetes mellitus with diabetic chronic kidney disease; F41.1 Generalized anxiety disorder; E66.9 Obesity, unspecified; E78.5 Hyperlipidemia, unspecified; E11.65 Type 2 diabetes mellitus with hyperglycemia; I12.9 Hypertensive chronic kidney disease with stage 1 through stage 4 chronic kidney disease, or unspecified chronic kidney disease; N18.32 Chronic kidney disease, stage 3b; E55.9 Vitamin D deficiency, unspecified; J98.6 Disorders of diaphragm; M79.10 Myalgia, unspecified site; Z79.899 Other long term (current) drug therapy; Z88.1 Allergy status to other antibiotic agents; Z88.2 Allergy status to sulfonamides; Z88.8 Allergy status to other drugs, medicaments and biological substances; Z87.442 Personal history of urinary calculi; Z90.49 Acquired absence of other specified parts of digestive tract; Z90.710 Acquired absence of both cervix and uterus; Z80.1 Family history of malignant neoplasm of trachea, bronchus and lung; Z79.4 Long term (current) use of insulin

== ENCOUNTER → 2020-11-09 | Outpatient (CLI) | payer MEDICARE ==
[~2020-11-09] MED LIST changes: +DECADRON6 M1 PO; +DICLOFENAC SOD50 MG PO; +GLIMEPIRIDE2 MG PO; +INSULIN LI100 UNIT/2 SC; +LORAZEPAM1 MG PO; +OXYBUTYNIN CHLOR5 M1 PO; +PRAVASTATIN SOD40 MG PO
[2020-11-09 12:57] LABS: BASO % 0.5 % (0.0-1.0); EOS # 0.4 10*3/uL (0.0-0.4); EOS % 9.4 % (1.0-4.0); LYMPH # 1.2 10*3/uL (1.3-4.4); LYMPH % 31.1 % (27.0-41.0); MEAN CELL VOLUME 98.2 fl (81.0-99.0); MEAN CORPUSCULAR HGB 31.9 pg (27.0-31.0); MEAN CORPUSCULAR HGB CONC 32.5 g/dl (33.0-37.0); MEAN PLATELET VOLUME 10.3 fl (9.6-12.3); MONO # 0.6 10*3/uL (0.1-1.0); MONO % 15.1 % (3.0-9.0); NEUT # 1.7 10*3/uL (2.3-7.9); NEUT % 43.6 % (47.0-73.0); PLATELET COUNT AUTOMATED 180 10*3/uL (130-400); RED BLOOD COUNT 4.48 10*6/uL (4.10-5.10); RED CELL DISTRI WIDTH 13.1 % (0-14.5); WHITE BLOOD COUNT 3.8 10*3/uL (4.8-10.8)
[2020-11-09 13:29] LABS: ALBUMIN 3.7 gm/dl (3.1-4.5); BILIRUBIN, DIRECT 0.3 mg/dL (0.0-0.2); CREATININE 1.19 mg/dL (0.55-1.02); POTASSIUM 4.5 mmol/L (3.5-5.1); TOTAL PROTEIN 7.4 gm/dL (6.4-8.2)
[2020-11-09 13:36] LABS: THYROID STIM HORMONE (HS) 1.61 uIU/ml (0.358-4.75)
[2020-11-10 10:08] LABS: CREATININE,URINE 103.2 mg/dL (Not Estab.)
== END | disposition home or self-care (01) ==
LOC: LAB 12:23
PROVIDERS: Family Medicine; ATTEND Nurse Practitioner Family
DX: E11.40 Type 2 diabetes mellitus with diabetic neuropathy, unspecified (principal); E11.9 Type 2 diabetes mellitus without complications; I47.1 Supraventricular tachycardia; R53.83 Other fatigue; Z79.4 Long term (current) use of insulin

== ENCOUNTER 2020-11-10 16:33 | Emergency (ER) | payer MEDICARE ==
[~2020-11-10] VITALS: Ht 162.5 cm; Wt 99.8 kg
[2020-11-10 16:39] VITALS: BP 148/68
[2020-11-10 17:31] LABS: BASO % 0.6 % (0.0-1.0); EOS # 0.3 10*3/uL (0.0-0.4); EOS % 6.3 % (1.0-4.0); HEMATOCRIT 42.2 % (37.0-47.0); LYMPH # 1.7 10*3/uL (1.3-4.4); LYMPH % 31.4 % (27.0-41.0); MEAN CELL VOLUME 98.8 fl (81.0-99.0); MEAN CORPUSCULAR HGB 32.3 pg (27.0-31.0); MEAN CORPUSCULAR HGB CONC 32.7 g/dl (33.0-37.0); MEAN PLATELET VOLUME 10.7 fl (9.6-12.3); MONO # 0.5 10*3/uL (0.1-1.0); MONO % 9.7 % (3.0-9.0); NEUT # 2.7 10*3/uL (2.3-7.9); NEUT % 51.6 % (47.0-73.0); PLATELET COUNT AUTOMATED 172 10*3/uL (130-400); RED BLOOD COUNT 4.27 10*6/uL (4.10-5.10); WHITE BLOOD COUNT 5.3 10*3/uL (4.8-10.8)
[2020-11-10 17:42] LABS: ACT PARTIAL THROMBO TIME 26.5 SECONDS (20.0-32.1)
[2020-11-10 17:44] LABS: CREATININE 1.15 mg/dL (0.55-1.02); POTASSIUM 4.5 mmol/L (3.5-5.1)
== END 2020-11-10 18:33 | disposition home or self-care (01) ==
LOC: ED 16:33
PROVIDERS: Emergency Medicine
DX: R53.83 Other fatigue (principal); I12.9 Hypertensive chronic kidney disease with stage 1 through stage 4 chronic kidney disease, or unspecified chronic kidney disease; E11.22 Type 2 diabetes mellitus with diabetic chronic kidney disease; N18.30 Chronic kidney disease, stage 3 unspecified; I25.10 Atherosclerotic heart disease of native coronary artery without angina pectoris; E66.9 Obesity, unspecified; Z68.39 Body mass index [BMI] 39.0-39.9, adult; Z98.890 Other specified postprocedural states; Z90.710 Acquired absence of both cervix and uterus; Z90.49 Acquired absence of other specified parts of digestive tract; Z87.442 Personal history of urinary calculi; Z79.82 Long term (current) use of aspirin; Z79.899 Other long term (current) drug therapy; Z88.2 Allergy status to sulfonamides; Z88.1 Allergy status to other antibiotic agents

== ENCOUNTER → 2020-12-01 | Outpatient (CLI) | payer MEDICARE | END | disposition home or self-care (01) | LOC: RAD 13:06 | PROVIDERS: ATTEND Family Medicine | DX: M50.322 Other cervical disc degeneration at C5-C6 level (principal); I51.7 Cardiomegaly; G89.29 Other chronic pain ==

== ENCOUNTER 2021-03-22 14:04 | Emergency (ER) | payer MEDICARE ==
[~2021-03-22] VITALS: Ht 162.5 cm; Wt 108.9 kg
[2021-03-22 14:23] VITALS: BP 128/96
== END 2021-03-22 18:21 | disposition home or self-care (01) ==
LOC: ED 14:04
DX: G89.29 Other chronic pain (principal); M25.561 Pain in right knee; Z90.49 Acquired absence of other specified parts of digestive tract; Z90.710 Acquired absence of both cervix and uterus; Z87.442 Personal history of urinary calculi; Z79.899 Other long term (current) drug therapy; Z79.82 Long term (current) use of aspirin; Z88.2 Allergy status to sulfonamides; Z88.1 Allergy status to other antibiotic agents

== ENCOUNTER → 2021-04-10 | Outpatient (CLI) | payer MEDICARE | END | disposition home or self-care (01) | LOC: US 13:35 | PROVIDERS: ATTEND Family Medicine | DX: M79.604 Pain in right leg (principal); M79.89 Other specified soft tissue disorders ==

== ENCOUNTER → 2022-04-15 | Outpatient (CLI) | payer MEDICARE ==
[~2022-04-15] MED LIST changes: +BENADRYL ALLERG25 M5 PO; +CYCLOBENZAPRINE5 M3 PO; +HYDROCODONE-AC1 EAC1 PO; +Humalog SQ; +VIBRA-TAB100 MG PO
== END | disposition home or self-care (01) ==
LOC: ORTHO 01:51
PROVIDERS: ATTEND Orthopaedic Surgery
DX: S42.201D Unspecified fracture of upper end of right humerus, subsequent encounter for fracture with routine healing (principal); X58.XXXD Exposure to other specified factors, subsequent encounter

== ENCOUNTER → 2022-05-08 | Outpatient (CLI) | payer MEDICARE | END | disposition home or self-care (01) | LOC: ORTHO 04:32 | PROVIDERS: ATTEND Orthopaedic Surgery | DX: S42.201D Unspecified fracture of upper end of right humerus, subsequent encounter for fracture with routine healing (principal); X58.XXXD Exposure to other specified factors, subsequent encounter ==

== ENCOUNTER → 2022-07-02 | Outpatient (CLI) | payer MEDICARE | END | disposition home or self-care (01) | LOC: ORTHO 01:47 | PROVIDERS: ATTEND Orthopaedic Surgery | DX: S42.201D Unspecified fracture of upper end of right humerus, subsequent encounter for fracture with routine healing (principal); X58.XXXD Exposure to other specified factors, subsequent encounter ==

== ENCOUNTER 2022-10-01 10:32 | Inpatient (IN) | payer MEDICARE ==
[~2022-10-01] VITALS: Ht 162.5 cm; Wt 99.8 kg
[~2022-10-01 10:32] MED LIST changes: +TRAMADOL HCL50 MG PO
[2022-10-01 10:38] VITALS: BP 143/66
[2022-10-01 11:31] LABS: BASO % 0.4 % (0.0-1.0); EOS % 0.1 % (1.0-4.0); HEMATOCRIT 46.5 % (37.0-47.0); LYMPH # 0.8 10*3/uL (1.3-4.4); MEAN CELL VOLUME 94.5 fl (81.0-99.0); MEAN CORPUSCULAR HGB 31.1 pg (27.0-31.0); MEAN CORPUSCULAR HGB CONC 32.9 g/dl (33.0-37.0); MEAN PLATELET VOLUME 11.1 fl (9.6-12.3); MONO # 0.8 10*3/uL (0.1-1.0); MONO % 11.8 % (3.0-9.0); NEUT # 5.4 10*3/uL (2.3-7.9); NEUT % 76.3 % (47.0-73.0); PLATELET COUNT AUTOMATED 172 10*3/uL (130-400); RED BLOOD COUNT 4.92 10*6/uL (4.10-5.10); RED CELL DISTRI WIDTH 12.9 % (0-14.5)
[2022-10-01 11:47] LABS: ACT PARTIAL THROMBO TIME 32.3 SECONDS (20.0-32.1); INTERNATIONAL NORM RATIO 1.1 (2.0-3.5)
[2022-10-01 11:56] LABS: ALKALINE PHOSPHATASE 124 U/L (46-116); BUN 11 mg/dl (9-23); CHLORIDE 97 mmol/L (98-107); LIPASE 54 U/L (12-53); POTASSIUM 3.8 mmol/L (3.4-5.1); SGPT/ALT 46 U/L (10-49); TOTAL PROTEIN 7.9 gm/dL (6.0-8.0)
[2022-10-01] MEDS ORDERED: VOLTAREN50 M1 PO (12:34)
[2022-10-01] MEDS ORDERED: INSULIN LI100 UNIT/2 SQ (13:39)
[2022-10-01 13:48] LABS: BILIRUBIN Negative (Negative); BLOOD Negative (Negative); CLARITY Clear (Clear); COLOR Yellow (Yellow); GLUCOSE Negative (Negative); KETONE Negative (Negative); LEUKO ESTERASE Negative (Negative); NITRITE Negative (Negative); PH 5.5 (4.5-8.0)
[2022-10-01 13:56] VITALS: BP 182/99
[2022-10-01 14:30] LABS: RBC 0-2 rbc/hpf (0-2); WBC 0-2 wbc/hpf (0-5)
[2022-10-01 15:49] VITALS: BP 150/92
[2022-10-01 20:00] VITALS: BP 149/84
[2022-10-02] VITALS: BP 144/73
[2022-10-02 06:11] LABS: ALKALINE PHOSPHATASE 126 U/L (46-116); BUN 14 mg/dl (9-23); CHLORIDE 104 mmol/L (98-107); CHOLESTEROL 166 mg/dL (<200); FREE T4 0.98 ng/dl (0.89-1.76); LDL CHOLESTEROL 105 mg/dL (9-159); SGPT/ALT 43 U/L (10-49); THYROID STIM HORMONE (HS) 0.312 uIU/ml (0.550-4.780); TOTAL PROTEIN 7.2 gm/dL (6.0-8.0); TRIGLYCERIDES 150 mg/dl (<150)
[2022-10-02 06:25] LABS: ACT PARTIAL THROMBO TIME 30.4 SECONDS (20.0-32.1); INTERNATIONAL NORM RATIO 1.1 (2.0-3.5)
[2022-10-02 06:26] LABS: BASO % 0.2 % (0.0-1.0); HEMATOCRIT 42.4 % (37.0-47.0); LYMPH % 15.7 % (27.0-41.0); MEAN CELL VOLUME 94.6 fl (81.0-99.0); MEAN CORPUSCULAR HGB 31.3 pg (27.0-31.0); MONO # 0.6 10*3/uL (0.1-1.0); MONO % 9.8 % (3.0-9.0); NEUT # 4.6 10*3/uL (2.3-7.9); NEUT % 73.8 % (47.0-73.0); PLATELET COUNT AUTOMATED 169 10*3/uL (130-400); RED BLOOD COUNT 4.48 10*6/uL (4.10-5.10); RED CELL DISTRI WIDTH 12.7 % (0-14.5); WHITE BLOOD COUNT 6.2 10*3/uL (4.8-10.8)
[2022-10-02 06:59] LABS: VITAMIN D, 25-HYDROXY 57.4 ng/mL (30-100)
[2022-10-02 08:00] VITALS: BP 137/75
[2022-10-02 12:00] VITALS: BP 135/71
== END 2022-10-02 14:55 | disposition home or self-care (01) | DRG 177 ==
LOC: ED 10:32 → EDHOLD 12:11 → 4E 14:58
PROVIDERS: Emergency Medicine; Student in an Organized Health Care Education/Training Program; ADMIT Student in an Organized Health Care Education/Training Program; ATTEND Student in an Organized Health Care Education/Training Program
DX: U07.1 COVID-19 (principal); N17.0 Acute kidney failure with tubular necrosis; E87.1 Hypo-osmolality and hyponatremia; E87.20 Acidosis, unspecified; N32.81 Overactive bladder; J98.6 Disorders of diaphragm; I25.10 Atherosclerotic heart disease of native coronary artery without angina pectoris; E11.22 Type 2 diabetes mellitus with diabetic chronic kidney disease; F41.0 Panic disorder [episodic paroxysmal anxiety]; E78.5 Hyperlipidemia, unspecified; E80.6 Other disorders of bilirubin metabolism; R74.01 Elevation of levels of liver transaminase levels; E87.8 Other disorders of electrolyte and fluid balance, not elsewhere classified; E11.69 Type 2 diabetes mellitus with other specified complication; I12.9 Hypertensive chronic kidney disease with stage 1 through stage 4 chronic kidney disease, or unspecified chronic kidney disease; N18.30 Chronic kidney disease, stage 3 unspecified; E55.9 Vitamin D deficiency, unspecified; F41.1 Generalized anxiety disorder; E11.65 Type 2 diabetes mellitus with hyperglycemia; F32.9 Major depressive disorder, single episode, unspecified; Z88.1 Allergy status to other antibiotic agents; Z88.2 Allergy status to sulfonamides; Z88.8 Allergy status to other drugs, medicaments and biological substances; Z90.710 Acquired absence of both cervix and uterus; Z90.49 Acquired absence of other specified parts of digestive tract; Z87.442 Personal history of urinary calculi; Z82.49 Family history of ischemic heart disease and other diseases of the circulatory system; Z80.1 Family history of malignant neoplasm of trachea, bronchus and lung; Z86.16 Personal history of COVID-19

== ENCOUNTER 2023-01-09 13:35 | Emergency (ER) | payer MEDICARE ==
[~2023-01-09] VITALS: Ht 162.5 cm; Wt 104.3 kg
[~2023-01-09 13:35] MED LIST changes: +INSULIN LI100 UNIT/2 SQ; +VOLTAREN50 M1 PO
[2023-01-09 14:31] LABS: BASO % 0.7 % (0.0-1.0); EOS # 0.2 10*3/uL (0.0-0.4); HEMATOCRIT 43.4 % (37.0-47.0); LYMPH # 1.8 10*3/uL (1.3-4.4); LYMPH % 29.2 % (27.0-41.0); MEAN CORPUSCULAR HGB CONC 32.3 g/dl (33.0-37.0); MEAN PLATELET VOLUME 10.5 fl (9.6-12.3); MONO # 0.6 10*3/uL (0.1-1.0); NEUT # 3.5 10*3/uL (2.3-7.9); NEUT % 56.8 % (47.0-73.0); PLATELET COUNT AUTOMATED 143 10*3/uL (130-400); RED BLOOD COUNT 4.52 10*6/uL (4.10-5.10); RED CELL DISTRI WIDTH 12.9 % (0-14.5); WHITE BLOOD COUNT 6.1 10*3/uL (4.8-10.8)
[2023-01-09 14:55] LABS: POTASSIUM 4.2 mmol/L (3.4-5.1); TOTAL PROTEIN 7.2 gm/dL (6.0-8.0)
[2023-01-09 16:03] VITALS: BP 138/71
[2023-01-09] MEDS ORDERED: TYLOPHEN500 M2 PO (16:16)
[2023-01-09] MEDS ORDERED: REGLAN10 M1 PO (16:16)
== END 2023-01-09 16:21 | disposition home or self-care (01) ==
LOC: ED 13:35
PROVIDERS: Emergency Medicine
DX: R03.0 Elevated blood-pressure reading, without diagnosis of hypertension (principal); H53.8 Other visual disturbances; I10 Essential (primary) hypertension; E11.9 Type 2 diabetes mellitus without complications; G43.909 Migraine, unspecified, not intractable, without status migrainosus; I25.2 Old myocardial infarction; F41.9 Anxiety disorder, unspecified; Z88.2 Allergy status to sulfonamides; Z88.8 Allergy status to other drugs, medicaments and biological substances; Z88.1 Allergy status to other antibiotic agents; Z87.442 Personal history of urinary calculi; Z90.49 Acquired absence of other specified parts of digestive tract; Z90.710 Acquired absence of both cervix and uterus; Z90.89 Acquired absence of other organs

== ENCOUNTER 2024-02-10 16:05 | Emergency (ER) | payer MEDICARE ==
[~2024-02-10] VITALS: Ht 162.5 cm; Wt 98.9 kg
[~2024-02-10 16:05] MED LIST changes: +REGLAN10 M1 PO; +TYLOPHEN500 M2 PO
[2024-02-10 16:13] VITALS: BP 180/84
[2024-02-10] MEDS ORDERED: PRAVASTATIN SOD80 MG PO (16:15)
[2024-02-10] MEDS ORDERED: LISINOPRIL20 MG PO (16:15)
[2024-02-10] MEDS ORDERED: OZEMPIC1 MG/0.71 SQ (16:16)
[2024-02-10] MEDS ORDERED: TOUJEO SOL300 UNIT/1 SQ (16:17)
[2024-02-10] MEDS ORDERED: BUPROPION HYDR150 M3 PO (16:17)
[2024-02-10] MEDS ORDERED: ASPIRIN81 M1 PO (16:19)
[2024-02-10] MEDS ORDERED: METOPROLOL SUCC50 M1 PO (16:20)
[2024-02-10] MEDS ORDERED: PREDNISONE10 MG PO (16:33)
== END 2024-02-10 16:36 | disposition home or self-care (01) ==
LOC: ED 16:05
DX: L23.9 Allergic contact dermatitis, unspecified cause (principal); E11.9 Type 2 diabetes mellitus without complications; Z88.2 Allergy status to sulfonamides; Z88.1 Allergy status to other antibiotic agents; Z88.8 Allergy status to other drugs, medicaments and biological substances; Z79.4 Long term (current) use of insulin; Z79.899 Other long term (current) drug therapy; Z79.82 Long term (current) use of aspirin; Z87.442 Personal history of urinary calculi; Z90.49 Acquired absence of other specified parts of digestive tract; Z90.711 Acquired absence of uterus with remaining cervical stump; Z90.89 Acquired absence of other organs

== ENCOUNTER 2024-10-03 01:35 | Emergency (ER) | payer MEDICARE ==
[~2024-10-03 01:35] MED LIST changes: +ASPIRIN81 M1 PO; +BUPROPION HYDR150 M3 PO; +METOPROLOL SUCC50 M1 PO; +OZEMPIC1 MG/0.71 SQ; +PRAVASTATIN SOD80 MG PO; +TOUJEO SOL300 UNIT/1 SQ
[2024-10-03 01:49] VITALS: BP 103/86
[2024-10-03] MEDS ORDERED: Acetaminophen/Oxycodone 5 MG/325 MG TABLET PO ONE (02:20)
[2024-10-03] MEDS ORDERED: TRAMADOL HCL50 MG PO (04:36)
== END 2024-10-03 04:45 | disposition home or self-care (01) ==
LOC: ED 01:35
DX: M54.2 Cervicalgia (principal); Z53.29 Procedure and treatment not carried out because of patient's decision for other reasons; M79.641 Pain in right hand; M79.642 Pain in left hand; I10 Essential (primary) hypertension; E11.9 Type 2 diabetes mellitus without complications; G43.909 Migraine, unspecified, not intractable, without status migrainosus; R68.84 Jaw pain; I25.2 Old myocardial infarction; F41.9 Anxiety disorder, unspecified; Z88.2 Allergy status to sulfonamides; Z88.1 Allergy status to other antibiotic agents; Z88.8 Allergy status to other drugs, medicaments and biological substances; Z90.49 Acquired absence of other specified parts of digestive tract; Z90.710 Acquired absence of both cervix and uterus; Z90.89 Acquired absence of other organs; Z98.890 Other specified postprocedural states; W06.XXXA Fall from bed, initial encounter

== ENCOUNTER 2025-01-06 13:41 | Emergency (ER) | payer MEDICARE ==
[~2025-01-06] VITALS: Wt 81.6 kg
[~2025-01-06 13:41] MED LIST changes: +ADMELOG100 UNIT/1 SQ; +METRONIDAZOLE500 M1 PO; +OZEMPIC2 MG/0.71 SQ; +VANCOCIN125 MG PO
[2025-01-06 14:02] VITALS: BP 130/90
[2025-01-06] MEDS ORDERED: Dicyclomine Hydrochloride 20 MG TAB PO ONE (14:25)
[2025-01-06 14:42] LABS: BASO % 0.5 % (0.0-1.0); EOS # 0.2 10*3/uL (0.0-0.4); EOS % 2.4 % (1.0-4.0); HEMATOCRIT 39.1 % (37.0-47.0); MEAN CELL VOLUME 95.8 fl (81.0-99.0); MEAN CORPUSCULAR HGB 30.6 pg (27.0-31.0); MEAN PLATELET VOLUME 9.4 fl (9.6-12.3); MONO # 0.8 10*3/uL (0.1-1.0); MONO % 9.9 % (3.0-9.0); NEUT # 4.9 10*3/uL (2.3-7.9); NEUT % 57.6 % (47.0-73.0); PLATELET COUNT AUTOMATED 192 10*3/uL (130-400); RED BLOOD COUNT 4.08 10*6/uL (4.10-5.10); WHITE BLOOD COUNT 8.5 10*3/uL (4.8-10.8)
[2025-01-06 15:17] LABS: ALKALINE PHOSPHATASE 154 U/L (46-116); BUN 11 mg/dl (9-23); CHLORIDE 105 mmol/L (98-107); LIPASE 81 U/L (12-53); POTASSIUM 3.8 mmol/L (3.4-5.1); SGPT/ALT 29 U/L (5-49); TOTAL PROTEIN 6.1 gm/dL (6.0-8.0)
[2025-01-06] MEDS ORDERED: DICYCLOMINE HYD10 MG PO (15:55)
[2025-01-06] MEDS ORDERED: METRONIDAZOLE500 M1 PO (15:55)
== END 2025-01-06 15:57 | disposition home or self-care (01) ==
LOC: ED 13:41
PROVIDERS: Physician Assistant Medical
DX: K52.9 Noninfective gastroenteritis and colitis, unspecified (principal); I25.10 Atherosclerotic heart disease of native coronary artery without angina pectoris; F32.A Depression, unspecified; F41.9 Anxiety disorder, unspecified; E11.9 Type 2 diabetes mellitus without complications; E78.5 Hyperlipidemia, unspecified; I12.9 Hypertensive chronic kidney disease with stage 1 through stage 4 chronic kidney disease, or unspecified chronic kidney disease; N18.9 Chronic kidney disease, unspecified; Z88.2 Allergy status to sulfonamides; Z88.1 Allergy status to other antibiotic agents; Z79.4 Long term (current) use of insulin; Z79.899 Other long term (current) drug therapy; Z79.82 Long term (current) use of aspirin; Z87.442 Personal history of urinary calculi; Z90.49 Acquired absence of other specified parts of digestive tract; Z98.890 Other specified postprocedural states; Z90.711 Acquired absence of uterus with remaining cervical stump

== ENCOUNTER → 2025-03-16 | Outpatient (CLI) | payer MEDICARE ==
[~2025-03-16] MED LIST changes: +DICYCLOMINE HYD10 MG PO; +DIFI200T PO; +LACTINEX 0.2 MG1 TAB PO; +MACROBID100 M1 PO; +VANCOCIN250 M1 PO; +VANCOCIN250 MG PO; +VITAMIN B1250 MCG PO; -VITAMIN D2000 IU PO; +VITAMIN D250 MCG PO
[2025-03-16 15:46] LABS: BASO # 0.0 10*3/uL (0.0-0.1); BASO % 0.3 % (0.0-1.0); EOS # 0.2 10*3/uL (0.0-0.4); EOS % 2.1 % (1.0-4.0); MEAN CELL VOLUME 94.6 fl (81.0-99.0); MEAN CORPUSCULAR HGB 31.1 pg (27.0-31.0); MEAN PLATELET VOLUME 10.3 fl (9.6-12.3); MONO # 0.6 10*3/uL (0.1-1.0); MONO % 9.1 % (3.0-9.0); NEUT # 4.0 10*3/uL (2.3-7.9); NEUT % 56.0 % (47.0-73.0); NUCLEATED RED BLOOD CELL 0.0 % (0.0-0.0); NUCLEATED RED BLOOD CELL 0.0 10*3/uL (0.0-0.0); PLATELET COUNT AUTOMATED 182 10*3/uL (130-400); RED CELL DISTRI WIDTH 13.2 % (0-14.5)
[2025-03-16 16:39] LABS: BUN 11 mg/dl (9-23); SGPT/ALT 57 U/L (5-49)
== END | disposition home or self-care (01) ==
LOC: LAB 15:23
PROVIDERS: ATTEND Internal Medicine
DX: E11.65 Type 2 diabetes mellitus with hyperglycemia (principal); R10.32 Left lower quadrant pain; R53.1 Weakness

== ENCOUNTER → 2025-03-29 | Outpatient (CLI) | payer MEDICARE | END | disposition home or self-care (01) | LOC: US 03-23 01:29 | PROVIDERS: ATTEND Family Medicine | DX: K76.0 Fatty (change of) liver, not elsewhere classified (principal); R74.01 Elevation of levels of liver transaminase levels ==

== ENCOUNTER 2025-07-05 19:30 | Emergency (ER) | payer MEDICARE ==
[~2025-07-05] VITALS: Ht 162.5 cm; Wt 84.4 kg
[~2025-07-05 19:30] MED LIST changes: +ATIVAN0.5 MG PO; +BUPROPION XL300 MG PO; +VANCOMYCIN HCL125 MG PO
[2025-07-05 20:02] VITALS: BP 160/90
[2025-07-05] MEDS ORDERED: VANCOMYCIN HCL 125 MG CAPSULE PO ONE (20:25)
[2025-07-05 20:42] LABS: BASO # 0.0 10*3/uL (0.0-0.1); BASO % 0.3 % (0.0-1.0); EOS # 0.1 10*3/uL (0.0-0.4); EOS % 1.0 % (1.0-4.0); MEAN CELL VOLUME 95.1 fl (81.0-99.0); MEAN CORPUSCULAR HGB 31.1 pg (27.0-31.0); MEAN PLATELET VOLUME 10.4 fl (9.6-12.3); MONO # 1.2 10*3/uL (0.1-1.0); MONO % 8.6 % (3.0-9.0); NEUT # 9.6 10*3/uL (2.3-7.9); NEUT % 71.2 % (47.0-73.0); NUCLEATED RED BLOOD CELL 0.0 % (0.0-0.0); NUCLEATED RED BLOOD CELL 0.0 10*3/uL (0.0-0.0); PLATELET COUNT AUTOMATED 202 10*3/uL (130-400); RED CELL DISTRI WIDTH 12.0 % (0-14.5)
[2025-07-05] MEDS ORDERED: SODIUM CHLORIDE 0.9% 1,000 ML IV SCH (20:50)
[2025-07-05 21:13] LABS: BUN 14 mg/dl (9-23)
[2025-07-05] MEDS ORDERED: VANCOCIN125 M1 PO (21:27)
== END 2025-07-05 21:50 | disposition home or self-care (01) ==
LOC: ED 19:30
PROVIDERS: Internal Medicine
DX: A04.72 Enterocolitis due to Clostridium difficile, not specified as recurrent (principal); I10 Essential (primary) hypertension; E11.9 Type 2 diabetes mellitus without complications; G43.909 Migraine, unspecified, not intractable, without status migrainosus; I25.2 Old myocardial infarction; F41.9 Anxiety disorder, unspecified; Z98.890 Other specified postprocedural states; Z90.49 Acquired absence of other specified parts of digestive tract; Z90.710 Acquired absence of both cervix and uterus; Z90.89 Acquired absence of other organs; Z88.1 Allergy status to other antibiotic agents; Z88.2 Allergy status to sulfonamides; Z88.8 Allergy status to other drugs, medicaments and biological substances